=== PATIENT | male | born 1940 | race Caucasian/White ===

== ENCOUNTER 2023-08-17 10:41 | Emergency (ER) | payer OTHER, SELFPAY ==
[2023-08-17 10:55] VITALS: BP 142/67
[2023-08-17 11:21] VITALS: BMI 30.1
[2023-08-17 11:28] VITALS: BP 130/85
--- NOTE | 2023-08-17 11:28 | ED.GENMED ---
History of Present Illness
<JACKY Nguyen - Last Filed: 08/23/23 09:40>
General
Chief Complaint: Chest Pain
Source: patient
Exam Limitations: none
Time Seen by Provider: 08/17/23 11:10
Nursing documentation reviewed up to this point in time: agreed with
Travel History
Have you had any contact with someone who has COVID-19?: No
Do you have any symptoms of coronavirus? Fever > 100 degrees, chills, cough, shortness of breath, sore throat, loss of taste or smell, muscle aches, or headache?: No
History of Present Illness
History of Present Illness:
82 year old male reports chest pain since this morning. He reports taking 2 aspirin with no relief. He describes the pain as throbbing with radiation to the neck and left eye causing a headache. Patient rates the pain at a 4/10 and reports it came
on suddenly this AM. He denies previous episodes like this.
Past History
<JACKY Nguyen - Last Filed: 08/23/23 09:40>
Past History
ED Past Medical History: Asthma, COPD, GERD and Other (Kidney stones, Rectal bleeding, Vertigo, BPH, diverticulosis, hiatal hernia, pancreatitis, right foot drop)
ED Past Surgical History: Orthopedic (R knee)
Social History
Tobacco: Former smoker (quit 35 yrs ago.)
Alcohol: Occasional
Drug: None
Personal:
Living: with roommate
Employment: Employed
Family History
Family History: Other (Noncontributory)
Review of Systems
<JACKY Nguyen - Last Filed: 08/23/23 09:40>
Review of Systems
Constitutional: Reports no symptoms
EENT: Reports no symptoms
Respiratory: Reports no symptoms
Cardiac: Reports chest pain
ABD/GI: Reports no symptoms
Neurological: Reports headache
Phy Exam
<Marlin Siegel [facility] - Last Filed: 08/23/23 09:40>
General Physical Exam
General Presentation: well appearing and no apparent distress
General age: appears stated age
General Skin: warm
General Habitus: normal
General Mental: alert
General Hydration: appears well hydrated
Cardiovascular Exam
Cardiovascular Exam: regular rate/rhythm
Pulmonary Exam
Cough: no cough
Breath Sounds: Crackles: generalized
Scores
<Marlin Siegel [facility] - Last Filed: 08/23/23 09:40>
Heart Score for Chest Pain Patients
STEMI patient?: No
History: Slightly or Non-Suspicious
ECG: Normal
Age: >/= 65 years
Risk Factors: No Risk Factors
Troponin: </= Normal Limit
Heart Score for Chest Pain Patients: 2
Heart Score Risk: 2.5% MACE over next 6 weeks
Course
<Marlin Siegel [facility] - Last Filed: 08/23/23 09:40>
Orders/Labs/Results
Orders:
Orders
08/17/23 11:01
EKG [Electrocardiogram (*1)] Urgent
Reason for Study: Chest Pain
EKG- Treatment ONCE
08/17/23 11:23
CMP [Comprehensive Metabolic Panel] Urgent
Complete Blood Count/With Diff Urgent
Lipase Urgent
Troponin I Urgent
08/17/23 12:05
CT Head & Neck Angio W/wo IV Urgent
Comment:
Reason For Exam: left side headache, neck pain
08/17/23 14:18
Troponin I Urgent
Abnormal Lab Results
08/17/23
11:23
WBC 4.5 L 10^3/uL
(4.8-10.8)
MPV 10.5 H fL
(7.4-10.4)
Absolute Lymphs (auto) 1.0 L 10^3/uL
(1.2-3.4)
Monocytes % 12.7 H %
(1.7-9.3)
08/17/23 11:23
08/17/23 11:23
Vital Signs
Initial and Last Documented VS:
Initial Vital Signs
Temp Pulse Resp BP Pulse Ox
98.5 F 65 18 142/67 97
08/17/23 10:55 08/17/23 10:55 08/17/23 10:55 08/17/23 10:55 08/17/23 10:55
Last Documented Vital Signs
Temp Pulse Resp BP Pulse Ox
98.5 F 65 17 183/77 96
08/17/23 10:55 08/17/23 15:15 08/17/23 12:15 08/17/23 15:00 08/17/23 15:15
<Brandyn Bond, DO - Last Filed: 08/17/23 15:37>
Orders/Labs/Results
Orders:
Orders
08/17/23 11:01
EKG [Electrocardiogram (*1)] Urgent
Reason for Study: Chest Pain
EKG- Treatment ONCE
08/17/23 11:23
CMP [Comprehensive Metabolic Panel] Urgent
Complete Blood Count/With Diff Urgent
Lipase Urgent
Troponin I Urgent
08/17/23 12:05
CT Head & Neck Angio W/wo IV Urgent
Comment:
Reason For Exam: left side headache, neck pain
08/17/23 14:18
Troponin I Urgent
Abnormal Lab Results
08/17/23
11:23
WBC 4.5 L 10^3/uL
(4.8-10.8)
MPV 10.5 H fL
(7.4-10.4)
Absolute Lymphs (auto) 1.0 L 10^3/uL
(1.2-3.4)
Monocytes % 12.7 H %
(1.7-9.3)
08/17/23 11:23
08/17/23 11:23
Vital Signs
Initial and Last Documented VS:
Initial Vital Signs
Temp Pulse Resp BP Pulse Ox
98.5 F 65 18 142/67 97
08/17/23 10:55 08/17/23 10:55 08/17/23 10:55 08/17/23 10:55 08/17/23 10:55
Last Documented Vital Signs
Temp Pulse Resp BP Pulse Ox
98.5 F 65 17 183/77 96
08/17/23 10:55 08/17/23 15:15 08/17/23 12:15 08/17/23 15:00 08/17/23 15:15
<Brandyn Bond, DO - Last Filed: 08/17/23 15:37>
MDM/Problems Addressed
Differential Diagnosis Includes:
ACS, carotid dissection.
MDM/Problems Addressed:
82-year-old male with chest pain, headache. No signs of dissection, no signs of ACS, do not suspect PE. Patient stable for discharge, now asymptomatic.
Chronic conditions affecting care: Arrhythmia and Other (Anticoagulated state)
Acute Exacerbation and/or Progression of Chronic Illness: Arrhythmia and Other (Anticoagulated state)
<Brandyn Bond, DO - Last Filed: 08/17/23 15:37>
*Radiology
Radiology exam reviewed: radiology read reviewed (CT head and neck angiography no acute findings)
*Pulse Oximetry
Patient hypoxic: no
*EKG
Interpreted by ED Provider?: Yes
EKG Intrepretation Date: 08/17/23
EKG Intrepretation Time: 11:07
Interpretation: normal
Comparison EKG: changes noted
Heart Rate: 70
Rate: normal
Rhythm: sinus
Windber: normal axis
Interval: normal interval
QRS Pattern: normal QRS
Ischemia: no ischemia
*Test Bore Helper Interpretation
Rate: normal
Interpretation: normal
Heart Rate: 72
Rhythm: sinus
*Critical Care Note
Total Time (30-74mins, 75-104mins- exclusive of procedures): Not Applicable
Data Reviewed
Review of Other/Old Records Reveals: Operative Reports (laminectomy 12/19/22)
<Brandyn Bond DO - Last Filed: 08/17/23 15:37>
Patient Management
Social determinants of health affecting care: Living situation and Strong social support
Escalation/DeEscalation of care consider admission/obs:
admit not indicated
ED Attending Note
<JACKY Nguyen - Last Filed: 08/23/23 09:40>
-
Portions of this chart may have been created with voice recognition software.� Occasional wrong word or��sound alike� substitutions may have occurred due to the inherent limitations of voice recognition software.
<Brandyn Bond DO - Last Filed: 08/17/23 15:37>
ED Attending Note
Patient seen and examined by attending physician: Yes
I performed the substantive portion of visit, reviewed & personally made and approve the management plan that is documented in note by myself or SUHAIL.: Yes
I performed a history and physical exam of patient and discussed management with resident, I reviewed resident's note and agree with documented findings and plan of care.: Yes
ED Attending Note:
I have reviewed and agree with history and treatment plan by Marlin Siegel. My exam revealed 82-year-old male in no acute distress. He denies any symptoms at this time. Lungs clear, no bruit or murmur. Distal troponin negative. Will CTA head
neck to rule out carotid dissection, and repeat troponin.
Discharge Plan
Departure
Patient Disposition: Home (Routine Discharge)
Date of Disposition: 08/17/23
Time of Disposition: 15:12
Patient with high blood pressure during this ER visit?: Yes
Condition: Good
Discharge Problem:
Chest pain
Instructions: Chest Pain DCA Follow Up
Prescriptions:
No Action
esomeprazole magnesium [Nexium] 40 MG capsule,delayed release(DR/EC)
40 mg PO DAILY
Gammagard Liquid 20 GRAM/200 ML solution
400 ml IV MONTHLY
atorvastatin 40 MG tablet
40 mg PO DAILY
losartan 100 MG tablet
100 mg PO DAILY
albuterol sulfate 1.25 mg/3 mL solution for nebulization
1.25 mg inhalation QID PRN (Reason: shortness of breath or wheezing) Qty: 90 0RF
escitalopram oxalate 10 mg Tablet
10 mg PO DAILY Qty: 0
eszopiclone [Lunesta] 3 mg Tablet
3 mg PO HS
lorazepam 0.5 mg Tablet
0.5 mg PO PRN PRN (Reason: Flying)
ondansetron 4 mg Tablet,Disintegrating
4 mg PO Q6H PRN (Reason: Nausea-pre percocet)
Xarelto 20 mg Tablet
20 mg PO DAILY
Hold Instructions: Resume on 12/24/22.
Trelegy Ellipta 200-62.5-25 mcg Blister With Device
1 inh INHALATION DAILY
docusate sodium 100 mg Capsule
100 mg PO BID Qty: 1 0RF
sennosides [Senna Laxative] 8.6 mg Tablet
17.2 mg PO BID Qty: 2 0RF
oxycodone-acetaminophen [Percocet] 10-325 mg tablet
1 tab PO Q6H PRN (Reason: moderate-severe pain) Qty: 30 0RF
Rx Instructions:
1/2 tab moderate pain or 1 if severe
Rx Isis Rivera
tizanidine 2 mg capsule
2 mg PO TID Qty: 30 0RF
Rx Instructions:
*Rx provided by Sugey Rivera
Referrals:
Kristen Gomez MD [Family Provider] -
Interventions
Interventions:
*Risk Screen - Suicide Last Done: 08/17/23 10:55
*General Assessment Last Done: 08/17/23 15:33
*Neglect/Abuse Screening Last Done: 08/17/23 10:55
ED- Fall Risk Assessment Last Done: 08/17/23 11:35
*ED COVID-19 Vaccine History Last Done: 08/17/23 10:55
*Nursing Disposition Last Done: 08/17/23 15:33
ED- Cardiac Assessment Last Done: 08/17/23 11:35
Discharge Date and Time
Discharge Date/Time: 08/17/23 15:34
[2023-08-17 11:38] LABS: % Basophils 0.4 % (0-2); % Eosinophils 4.5 % (0-6); % Immature Granulocytes 0.4 % (0-0.5); % Lymphocytes 22.3 % (20.5-51.1); % Monocytes 12.7 % (1.7-9.3); % Neutrophils 59.7 % (42.2-75.2); Absolute Eosinophils 0.2 10^3/uL (0-0.7); Absolute Monocytes 0.6 10^3/uL (0.1-0.6); Absolute Neutrophils 2.7 10^3/uL (1.4-6.5); Hematocrit 40.2 % (39.0-52.0); Hemoglobin 13.6 g/dL (13.0-18.0); Mean Corp Hgb Conc. 33.8 g/dL (33.0-37.0); Mean Corpuscular Hgb 28.5 pg (27.0-31.0); Mean Corpuscular Volume 84.1 fL (80.0-94.0); Mean Platelet Volume 10.5 fL (7.4-10.4); Nucleated Red Blood Cells % 0 % (-); Platelet Count 234 10^3/uL (130-400); Red Blood Cell Count 4.78 10^6/uL (4.70-6.10); Red Cell Dist. Width 13.9 % (11.5-14.5); White Blood Cell Count 4.5 10^3/uL (4.8-10.8)
[2023-08-17 11:54] LABS: ALT (SGPT) 21 U/L (0-50); AST (SGOT) 22 U/L (17-59); Albumin 3.9 g/dl (3.5-5.0); Alkaline Phosphatase 83 U/L (38-126); Blood Urea Nitrogen 20 mg/dl (9-20); Calcium 8.7 mg/dl (8.4-10.2); Carbon Dioxide 27 mmol/L (22-30); Chloride 105 mmol/L (98-107); Estimated Creatinine Clearance 70 ml/min; Glucose 87 mg/dl (70-99); Lipase 128 U/L (23-300); Potassium 4.5 mmol/L (3.5-5.1); Sodium 136 mmol/L (135-145); Total Bilirubin 0.9 mg/dl (0.2-1.3); Total Protein 7.1 g/dl (6.3-8.2); eGFR > 60.00
[2023-08-17 12:00] VITALS: BP 149/80
[2023-08-17 12:04] LABS: Troponin I < 0.012 ng/ml
[2023-08-17 13:00] VITALS: BP 167/80
[2023-08-17 14:05] VITALS: BP 159/90
[2023-08-17 15:00] VITALS: BP 183/77
[2023-08-17 15:00] LABS: Troponin I < 0.012 ng/ml
== END 2023-08-17 15:34 | disposition home or self-care (01) ==
LOC: EMR 10:41
PROVIDERS: EMERGENCY PHYSICIAN Emergency Medicine; FAMILY PHYSICIAN Family Medicine
DX: R07.89 Other chest pain (principal); R03.0 Elevated blood-pressure reading, without diagnosis of hypertension
CPT/HCPCS: 99285; 70496; 70498; 80053; 83690; 84484; 85025; 93005; Q9967

== ENCOUNTER → 2023-09-12 16:35 | Outpatient (REF) | payer OTHER, SELFPAY | LOC: RAD 16:35 | PROVIDERS: ATTENDING PHYSICIAN Internal Medicine Gastroenterology; FAMILY PHYSICIAN Family Medicine | DX: K21.9 Gastro-esophageal reflux disease without esophagitis (principal) | CPT/HCPCS: 76700 ==

== ENCOUNTER 2023-09-13 06:27 | Day surgery (SDC) | payer OTHER, SELFPAY ==
[2023-09-13 09:08] VITALS: BP 171/85
[2023-09-13 09:15] VITALS: BMI 29.8
[2023-09-13 09:47] VITALS: BP 188/161
[2023-09-13 09:48] VITALS: BP 190/93
[2023-09-13 10:00] VITALS: BP 187/110
[2023-09-13 10:02] VITALS: BP 194/91
== END 2023-09-13 10:15 | disposition home or self-care (01) ==
LOC: GI 06:27
PROVIDERS: ATTENDING PHYSICIAN Internal Medicine Gastroenterology
DX: R10.13 Epigastric pain (principal); R68.81 Early satiety; K22.89 Other specified disease of esophagus; K25.9 Gastric ulcer, unspecified as acute or chronic, without hemorrhage or perforation; K44.9 Diaphragmatic hernia without obstruction or gangrene; K31.89 Other diseases of stomach and duodenum; K22.70 Barrett's esophagus without dysplasia
CPT/HCPCS: 43239; 88305; 88342

== ENCOUNTER → 2023-09-18 15:24 | Outpatient (REF) | payer OTHER, SELFPAY | LOC: RAD 15:24 | PROVIDERS: ATTENDING PHYSICIAN Internal Medicine Gastroenterology; FAMILY PHYSICIAN Family Medicine | DX: R10.9 Unspecified abdominal pain (principal) | CPT/HCPCS: 74177; Q9967 ==

== ENCOUNTER → 2024-05-06 08:01 | Outpatient (REF) | payer OTHER, SELFPAY | LOC: HWRCS 08:01 | PROVIDERS: ATTENDING PHYSICIAN Internal Medicine Cardiovascular Disease; FAMILY PHYSICIAN Family Medicine | DX: R06.02 Shortness of breath (principal) | CPT/HCPCS: 93306 ==

== ENCOUNTER → 2024-08-11 11:28 | Outpatient (REF) | payer OTHER, SELFPAY | LOC: RAD 11:28 | PROVIDERS: ATTENDING PHYSICIAN Allergy & Immunology; FAMILY PHYSICIAN Family Medicine | DX: D83.9 Common variable immunodeficiency, unspecified (principal); J45.50 Severe persistent asthma, uncomplicated; K21.9 Gastro-esophageal reflux disease without esophagitis; J45.901 Unspecified asthma with (acute) exacerbation; J47.9 Bronchiectasis, uncomplicated | CPT/HCPCS: 71046 ==

== ENCOUNTER 2024-09-19 06:11 | Day surgery (SDC) | payer OTHER, SELFPAY ==
[2024-09-19] VITALS (12 sets, daily range): BP systolic 123–155; BP diastolic 62–97; BMI 30.8
[2024-09-19] MEDS: NORMOSOL-R/PLASMALYTE-A 1000 IV (11:28)
--- NOTE | 2024-09-19 15:46 | OR.RPT ---
Operative Report
Operative Report
Anesthesia Type:
General With block
Operative Indications:
Displaced type IId distal clavicle fracture left
Operative Findings :
Same
Complications:
None
Implants:
4-hole [place] anatomic distal clavicle locking plate
Procedure and Technique:
Open reduction term fixation left distal clavicle fracture
INDICATIONS FOR PROCEDURE:
The patient is an 84-year-old active male who sustained a fall from standing. He was subsequently diagnosed with a displaced left distal clavicle fracture. He was seen in the office we discussed treatment options both surgical and nonsurgical. We
specifically discussed the relatively high nonunion rate for his type of distal clavicle fracture. Patient reports that he is quite active enjoys going to the gym and entertaining. Ultimately he elected to proceed with surgical intervention of
form of open reduction internal fixation. Specifically we discussed utilizing a distal clavicle locking plate versus hook plate. We discussed risks benefits and alternatives of surgery. We discussed the usual expected perioperative postoperative
course. After discussion written informed consent was obtained. Did have significant cardiac history and ultimately was cleared by cardiology.
OPERATIVE PROCEDURE:
Patient was seen identified the preoperative holding area. Operative extremity was marked. All questions were addressed and answered. He was taken to the operating room general anesthesia peripheral block performed. Operative extremities prepped
and draped in normal sterile fashion. Preoperative orthogonal fluoroscopy confirmed comminuted distal clavicle fracture. Timeout was performed again identifying the correct operative extremity. Preoperative antibiotics were addressed. Direct
superior approach to the distal clavicle was taken. Sharp dissection was carried through skin subcutaneous tissues deep fascial layer. Hemostasis was achieved electrocautery. Fracture was identified and fracture edges were debrided reduction was
performed and stabilized with a K wire. There was noted to be comminution inferiorly presumably with CC ligaments still attached to comminution. Balance fixation was achieved with bicortical 3.5 mm nonlocking screws medially and 2.7 mm locking
screws distally. the bone quality was noted to be somewhat poor distally however satisfactory purchase was achieved and I felt that a hook plate was unnecessary. Multiple #2 FiberWire sutures and Ethibond sutures were passed around the inferior
comminution and secured with multiple racking type images. Fluoroscopic imaging confirmed reduction of fracture with minimal superior migration of the clavicle relative to the acromion. Satisfied with the extend of surgery wound was copiously
irrigated normal saline solution. Was closed in layered fashion lysing 0 Vicryl for deep fascial layer, 2-0 Vicryl for subcutaneous layer and robert for skin. Aquacel dressing was applied. Anesthesia was reversed and patient was taken to PACU in
stable condition. Postoperative plans include nonweightbearing to the operative extremity in a sling. Plan to see patient back in 2 weeks for repeat imaging and plan removal of robert
Disposition:
PACU stable condition
[2024-09-19] MEDS: ZOFRAN 4 MG IV (16:21)
--- NOTE | 2024-09-19 19:21 | PTCARENOTE ---
called pt's to let him know the script was called in.
== END 2024-09-19 19:12 | disposition home or self-care (01) ==
LOC: SDS 06:11
PROVIDERS: ATTENDING PHYSICIAN Orthopaedic Surgery
DX: S42.032A Displaced fracture of lateral end of left clavicle, initial encounter for closed fracture (principal); W19.XXXA Unspecified fall, initial encounter
CPT/HCPCS: 23515; 73000; 76000; C1713

== ENCOUNTER 2025-02-13 18:19 | Observation (INO) | payer OTHER, SELFPAY ==
[2025-02-13] VITALS (8 sets, daily range): BP systolic 118–150; BP diastolic 46–82; BMI 32.4; BMI 32.0
[2025-02-13 13:17] LABS: Hematocrit 33.5 % (39.0-52.0); Hemoglobin 10.8 g/dL (13.0-18.0); Mean Corp Hgb Conc. 32.2 g/dL (33.0-37.0); Mean Corpuscular Volume 84.6 fL (80.0-94.0); Nucleated Red Blood Cells % 0 % (-); Platelet Count 222 10^3/uL (130-400); Red Cell Dist. Width 15.2 % (11.5-14.5)
[2025-02-13 13:52] LABS: Troponin I 4.870 ng/ml
[2025-02-13 13:57] LABS: ALT (SGPT) 14 U/L (0-50); AST (SGOT) 30 U/L (17-59); Albumin 3.7 g/dl (3.5-5.0); Alkaline Phosphatase 59 U/L (38-126); Blood Urea Nitrogen 24 mg/dl (9-20); Calcium 8.5 mg/dl (8.4-10.2); Carbon Dioxide 28 mmol/L (22-30); Chloride 109 mmol/L (98-107); Glucose 116 mg/dl (70-99); Potassium 4.2 mmol/L (3.5-5.1); Sodium 142 mmol/L (135-145); Total Protein 6.3 g/dl (6.3-8.2); eGFR > 60.00
--- NOTE | 2025-02-13 15:22 | ED.GENMED ---
History of Present Illness
<Bette Adrian DO, Resident - Last Filed: 02/14/25 06:02>
General
Chief Complaint: Breathing Problem
Source: patient
Exam Limitations: none
Time Seen by Provider: 02/13/25 14:26
Nursing documentation reviewed up to this point in time: agreed with
History of Present Illness
History of Present Illness:
Patient is an 84 year old male with a PMH of COPD, asthma, afib on xarelto and GERD, presenting with worsening SOB and productive cough s/p cardiac ablation and Watchman procedure 2 days ago at [facility]. Patient has been having worsening shortness
of breath since the procedure and said it feels like there is 'fluid in my lungs.' Patient reports that his cough is productive, with green mucus. Patient's last dose of AC (xarelto) was 2 days ago. Patient notes that he is about ~15 lbs heavier
than normal. Patient denies chest pain, heart palpitations, LE edema and all other ROS.
Past History
<Bette Adrian DO, Resident - Last Filed: 02/14/25 06:02>
Past History
ED Past Medical History: Asthma, COPD, GERD and Other (Kidney stones, Rectal bleeding, Vertigo, BPH, diverticulosis, hiatal hernia, pancreatitis, right foot drop)
ED Past Surgical History: Orthopedic (R knee)
Social History
Tobacco: Former smoker (quit 35 yrs ago.)
Alcohol: Occasional
Drug: None
Personal:
Living: with roommate
Employment: Employed
Family History
Family History: Other (Noncontributory)
Review of Systems
<Bette Adrian DO, Resident - Last Filed: 02/14/25 06:02>
Review of Systems
Allergies reviewed?: Yes
All Other Systems: ROS reviewed and negative except as documented in HPI and ROS
Constitutional: Reports weight gain
EENT: Reports no symptoms
Respiratory: Reports cough and trouble breathing
Cardiac: Reports no symptoms
ABD/GI: Reports no symptoms
: Reports no symptoms
Musculoskeletal: Reports no symptoms
Skin: Reports no symptoms
Neurological: Reports no symptoms
Endocrine: Reports no symptoms
Hematologic/Lymphatic: Reports no symptoms
Psychiatric: Reports no symptoms
Phy Exam
<Bette Adrian DO, Resident - Last Filed: 02/14/25 06:02>
General Physical Exam
General Presentation: well appearing and no apparent distress
General age: appears stated age
General Skin: warm and dry
General Habitus: obese
General Mental: alert
General Hydration: appears well hydrated
Cardiovascular Exam
Cardiovascular Exam: regular rate/rhythm
Heart Sounds: normal
Pulmonary Exam
Pulmonary Exam: decreased breath sounds and generalized wheezing
Gastrointestinal Exam
Gastrointestinal Exam: normal bowel sounds, soft and distended
Neurological Exam
Neurological Exam: alert and oriented x3
Psychiatric Exam
Psychiatric Exam: normal mood/affect
Scores
<Bette Adrian DO, Resident - Last Filed: 02/14/25 06:02>
Heart Failure Risk
Heart Failure Risk Score: Not Applicable
Course
<Bette Adrian DO, Resident - Last Filed: 02/14/25 06:02>
Orders/Labs/Results
Orders:
Orders
02/13/25
DH LUMASON 5mL Routine
02/13/25 12:36
Electrocardiogram (*1) Urgent
Reason for Study: Shortness of Breath
02/13/25 12:54
Complete Blood Count/With Diff Urgent
Comprehensive Metabolic Panel Urgent
Pro-BNP [NT-proBNP] Urgent
Troponin I Urgent
02/13/25 Dinner
Cholesterol Lowering
At Your Request: Limited Participation
Cholesterol Lowering: Sodium, 2 Gram
02/13/25 15:16
Echo 2D MMode Color/Doppler Stat
Reason for Study: elevated trop and proBNP 2 days s/p Watchman procedure
Comment: bedside
02/13/25 15:18
CR Chest - 2 Views Urgent
Comment:
Reason For Exam: SOB, productive cough
02/13/25 15:24
COVID-19 Antigen Urgent
Source: Nasal Swab
02/13/25 17:01
CefTRIAXone [Rocephin] 1,000 mg IV NOW STA
Dexamethasone Sod Phosphate [Decadron] 8 mg IV NOW STA
Ipratropium/Albuterol Sulfate [Duoneb] 3 ml INH R NOW STA
02/13/25 17:27
Admit/Transfer Patient As Directed
Co-Sign Provider:
Level of Care: Observation services
Assign to:: Telemetry
Physician / Group: Hospitalist: Flores
Diagnosis: CAP
Reason for Telemetry: Post Cardiac Ablation
Date to Stop Telemetry: 02/15/25
Time to Stop Telemetry: 11:00
PRN Pain Medication Management As Directed
May give lesser potent ordered pain med per pt: Yes
preference::
Protocol:: Medication orders for pain may be administered in a
manner that supports deferring to patient preference
when the pt is:
- Requesting an ordered lesser potent pain medication.
Least to most potent pain medications are defined
as: acetaminophen < NSAID < tramadol < opioids
(morphine, oxycodone, hydromorphone).
- Requesting a lesser dose of the same medication IF
ORDERED.
- Requesting a less intrusive route of administration
if both routes are prescribed by the provider (PO <
IV).
02/13/25 17:29
Code Status As Directed
Resuscitation Status: Do not resuscitate
Reached after discussion with pt or family/Healthcare POA: Yes
DNR Bracelet Application ONCE
02/13/25 17:43
CARDIOLOGY CONSULT Routine
Consulting Provider: Loy Winston
Was physician already notified: Yes
Reason for consult: elevated trops, recent cardiac procedure
02/13/25 17:48
Calcium 200mg(Ca. Carb. 500mg) [Tums Chewable Tablet] 200 mg PO Q6HPRN PRN
02/13/25 19:23
Troponin I Routine
Blood Culture Q30M
ARACELI Source: Blood/Venous
Specimen Description:
02/13/25 19:40
Blood Culture Q30M
ARACELI Source: Blood/Venous
Specimen Description:
02/13/25 19:42
Legionella Urinary Antigen Routine
ARACELI Source: Urine
Specimen Description:
Strep pneumoniae Antigen Routine
ARACELI Source: Urine
Specimen Description:
02/13/25 19:49
Sputum Culture [Respiratory Culture/Gram Stain] Routine
ARACELI Source: Sputum
Specimen Description:
Date Specimen was Collected: 02/13/25
Time Specimen was Collected: 19:48
02/13/25 20:24
Acetaminophen [Tylenol] 1,000 mg PO Q6HPRN PRN mild pain
Albuterol Nebs [Ventolin Nebules] 1.25 mg INH R QIDPRN PRN shortness of breath or wheezing
Atorvastatin [Lipitor] 40 mg PO QPM
Docusate W/Senna [Senokot-S] 1 tablet PO BIDPRN PRN
Pantoprazole [Protonix] 40 mg PO BID
Polyethylene Glycol Powder [Miralax] 17 grams PO DAILYPRN PRN
Rivaroxaban [Xarelto] 20 mg PO QPM
02/13/25 20:24
Activity As Directed
Activity Level: As Tolerated
Vital Signs As Directed
Frequency: Per unit guidelines
02/14/25 06:00
EKG [Electrocardiogram (*1)] IN AM
Reason for Study: Shortness of Breath
Basic Metabolic Panel IN AM
Complete Blood Count/With Diff IN AM
Troponin I IN AM
02/14/25 08:00
Doxycycline [Vibramycin] 100 mg PO Q12
Escitalopram Oxalate [Lexapro] 10 mg PO DAILY
Losartan [Cozaar] 100 mg PO DAILY
Prednisone [Deltasone] 40 mg PO DAILY
02/14/25 18:00
CefTRIAXone [Rocephin] 1,000 mg IV Q24H
02/15/25 11:00
DC Protocol for Telemetry ONCE
Abnormal Lab Results
02/13/25
12:54
RBC 3.96 L 10^6/uL
(4.70-6.10)
Hgb 10.8 L g/dL
(13.0-18.0)
Hct 33.5 L %
(39.0-52.0)
MCHC 32.2 L g/dL
(33.0-37.0)
RDW 15.2 H %
(11.5-14.5)
MPV 11.2 H fL
(7.4-10.4)
Absolute Monos (auto) 0.8 H 10^3/uL
(0.1-0.6)
Lymphocytes % 19.0 L %
(20.5-51.1)
Monocytes % 10.0 H %
(1.7-9.3)
Chloride 109 H mmol/L
(98-107)
BUN 24 H mg/dl
(9-20)
Glucose 116 H mg/dl
(70-99)
Troponin I 4.870 H* ng/ml
02/13/25 12:54
02/13/25 12:54
Vital Signs
Initial and Last Documented VS:
Initial Vital Signs
Temp Pulse Resp BP Pulse Ox
98.6 F 77 20 133/59 95
02/13/25 12:38 02/13/25 12:38 02/13/25 12:38 02/13/25 12:38 02/13/25 12:38
Last Documented Vital Signs
Temp Pulse Resp BP Pulse Ox
98.8 F 76 18 121/68 98
02/14/25 03:01 02/14/25 03:01 02/14/25 03:01 02/14/25 03:01 02/14/25 03:01
<Jean-Paul Bell MD - Last Filed: 02/13/25 17:05>
Orders/Labs/Results
Orders:
Orders
02/13/25
DH LUMASON 5mL Routine
02/13/25 12:36
Electrocardiogram (*1) Urgent
Reason for Study: Shortness of Breath
02/13/25 12:54
Complete Blood Count/With Diff Urgent
Comprehensive Metabolic Panel Urgent
Pro-BNP [NT-proBNP] Urgent
Troponin I Urgent
02/13/25 Dinner
Cholesterol Lowering
At Your Request: Limited Participation
Cholesterol Lowering: Sodium, 2 Gram
02/13/25 15:16
Echo 2D MMode Color/Doppler Stat
Reason for Study: elevated trop and proBNP 2 days s/p Watchman procedure
Comment: bedside
02/13/25 15:18
CR Chest - 2 Views Urgent
Comment:
Reason For Exam: SOB, productive cough
02/13/25 15:24
COVID-19 Antigen Urgent
Source: Nasal Swab
02/13/25 17:01
CefTRIAXone [Rocephin] 1,000 mg IV NOW STA
Dexamethasone Sod Phosphate [Decadron] 8 mg IV NOW STA
Ipratropium/Albuterol Sulfate [Duoneb] 3 ml INH R NOW STA
02/13/25 17:27
Admit/Transfer Patient As Directed
Co-Sign Provider:
Level of Care: Observation services
Assign to:: Telemetry
Physician / Group: Hospitalist: Flores
Diagnosis: CAP
Reason for Telemetry: Post Cardiac Ablation
Date to Stop Telemetry: 02/15/25
Time to Stop Telemetry: 11:00
PRN Pain Medication Management As Directed
May give lesser potent ordered pain med per pt: Yes
preference::
Protocol:: Medication orders for pain may be administered in a
manner that supports deferring to patient preference
when the pt is:
- Requesting an ordered lesser potent pain medication.
Least to most potent pain medications are defined
as: acetaminophen < NSAID < tramadol < opioids
(morphine, oxycodone, hydromorphone).
- Requesting a lesser dose of the same medication IF
ORDERED.
- Requesting a less intrusive route of administration
if both routes are prescribed by the provider (PO <
IV).
02/13/25 17:29
Code Status As Directed
Resuscitation Status: Do not resuscitate
Reached after discussion with pt or family/Healthcare POA: Yes
DNR Bracelet Application ONCE
02/13/25 17:43
CARDIOLOGY CONSULT Routine
Consulting Provider: Loy Winston
Was physician already notified: Yes
Reason for consult: elevated trops, recent cardiac procedure
02/13/25 17:48
Calcium 200mg(Ca. Carb. 500mg) [Tums Chewable Tablet] 200 mg PO Q6HPRN PRN
02/13/25 19:23
Troponin I Routine
Blood Culture Q30M
ARACELI Source: Blood/Venous
Specimen Description:
02/13/25 19:40
Blood Culture Q30M
ARACELI Source: Blood/Venous
Specimen Description:
02/13/25 19:42
Legionella Urinary Antigen Routine
ARACELI Source: Urine
Specimen Description:
Strep pneumoniae Antigen Routine
ARACELI Source: Urine
Specimen Description:
02/13/25 19:49
Sputum Culture [Respiratory Culture/Gram Stain] Routine
ARACELI Source: Sputum
Specimen Description:
Date Specimen was Collected: 02/13/25
Time Specimen was Collected: 19:48
02/13/25 20:24
Acetaminophen [Tylenol] 1,000 mg PO Q6HPRN PRN mild pain
Albuterol Nebs [Ventolin Nebules] 1.25 mg INH R QIDPRN PRN shortness of breath or wheezing
Atorvastatin [Lipitor] 40 mg PO QPM
Docusate W/Senna [Senokot-S] 1 tablet PO BIDPRN PRN
Pantoprazole [Protonix] 40 mg PO BID
Polyethylene Glycol Powder [Miralax] 17 grams PO DAILYPRN PRN
Rivaroxaban [Xarelto] 20 mg PO QPM
02/13/25 20:24
Activity As Directed
Activity Level: As Tolerated
Vital Signs As Directed
Frequency: Per unit guidelines
02/14/25 06:00
EKG [Electrocardiogram (*1)] IN AM
Reason for Study: Shortness of Breath
Basic Metabolic Panel IN AM
Complete Blood Count/With Diff IN AM
Troponin I IN AM
02/14/25 08:00
Doxycycline [Vibramycin] 100 mg PO Q12
Escitalopram Oxalate [Lexapro] 10 mg PO DAILY
Losartan [Cozaar] 100 mg PO DAILY
Prednisone [Deltasone] 40 mg PO DAILY
02/14/25 18:00
CefTRIAXone [Rocephin] 1,000 mg IV Q24H
02/15/25 11:00
DC Protocol for Telemetry ONCE
Abnormal Lab Results
02/13/25
12:54
RBC 3.96 L 10^6/uL
(4.70-6.10)
Hgb 10.8 L g/dL
(13.0-18.0)
Hct 33.5 L %
(39.0-52.0)
MCHC 32.2 L g/dL
(33.0-37.0)
RDW 15.2 H %
(11.5-14.5)
MPV 11.2 H fL
(7.4-10.4)
Absolute Monos (auto) 0.8 H 10^3/uL
(0.1-0.6)
Lymphocytes % 19.0 L %
(20.5-51.1)
Monocytes % 10.0 H %
(1.7-9.3)
Chloride 109 H mmol/L
(98-107)
BUN 24 H mg/dl
(9-20)
Glucose 116 H mg/dl
(70-99)
Troponin I 4.870 H* ng/ml
02/13/25 12:54
02/13/25 12:54
Vital Signs
Initial and Last Documented VS:
Initial Vital Signs
Temp Pulse Resp BP Pulse Ox
98.6 F 77 20 133/59 95
02/13/25 12:38 02/13/25 12:38 02/13/25 12:38 02/13/25 12:38 02/13/25 12:38
Last Documented Vital Signs
Temp Pulse Resp BP Pulse Ox
98.8 F 76 18 121/68 98
02/14/25 03:01 02/14/25 03:01 02/14/25 03:01 02/14/25 03:01 02/14/25 03:01
<Bette Adrian DO, Resident - Last Filed: 02/14/25 06:02>
MDM/Problems Addressed
Differential Diagnosis Includes:
acute heart failure, pneumonia, viral infection
MDM/Problems Addressed:
Ordered echo w/ Doppler and chest X-Ray 2 views to assess the patient's worsening SOB and cough.
<Bette Adrian DO, Resident - Last Filed: 02/14/25 06:02>
*Pulse Oximetry
SaO2: 95
Oxygen Mode of Delivery: Room air
Patient hypoxic: no
*Critical Care Note
Total Time (30-74mins, 75-104mins- exclusive of procedures): Not Applicable
ED Attending Note
<Bette Adrian DO, Resident - Last Filed: 02/14/25 06:02>
-
Portions of this chart may have been created with voice recognition software.� Occasional wrong word or��sound alike� substitutions may have occurred due to the inherent limitations of voice recognition software.
<Jean-Paul Bell MD - Last Filed: 02/13/25 17:05>
ED Attending Note
Patient seen and examined by attending physician: Yes
I performed a history and physical exam of patient and discussed management with resident, I reviewed resident's note and agree with documented findings and plan of care.: Yes
ED Attending Note:
84-year-old male increase shortness of breath since returning home from a Watchman procedure/ablation 3 days ago. Some cough some sputum. No pleuritic pain.
On exam patient is nontoxic. Minimally tachypneic at rest. Heart regular rate and rhythm. Diffuse mild expiratory wheezing and rhonchi. No rales in the bases. Abdomen is nontender. Grossly nonfocal. Warm and dry. No significant edema.
Troponin positive. Likely from procedure. EKG is stable. Chest x-ray as a possible left perihilar pneumonia. Cleared by cardiology although they agree troponin should be trended. Will cover with antibiotics steroids albuterol treatments.
Discharge Plan
Departure
Patient Disposition: Admit
Date of Disposition: 02/13/25
Time of Disposition: 17:03
Presentation/result/management discussed w/ accepting MD/DO: cards
Discharge Problem:
Respiratory distress/pneumonia, Recent watchman/ablation, Elevated troponin likely secondary to pr
Interventions
Interventions:
*Risk Screen - Suicide Last Done: 02/13/25 12:38
*General Assessment Last Done: 02/13/25 12:38
*Neglect/Abuse Screening Last Done: 02/13/25 12:38
*ED COVID-19 Vaccine History Last Done: 02/13/25 12:38
*Nursing Disposition Last Done: 02/13/25 20:22
ED- Cardiac Assessment Last Done: 02/13/25 15:15
ED- Pulmonary Assessment Last Done: 02/13/25 15:15
Discharge Date and Time
Discharge Date/Time: 02/13/25 20:23
[2025-02-13 15:47] LABS: COVID-19 Antigen Negative (Negative)
--- NOTE | 2025-02-13 16:12 | CON.CAR ---
Addendum entered and electronically signed by Ced Lynne DO 02/13/25 17:32:
I saw and examined the patient.
The Surgical Endoscopist's note was reviewed and I agree with the note.
Comment:
Patient with a history of atrial fibrillation, hypertension, hyperlipidemia, MR, asthma COPD, GERD, obesity. Patient underwent PVI, CTI ablation, and watchman on 02/11/2025 at [facility]. Ablation was performed with fair pulsed pulse field
ablation. Patient presented with worsening shortness of breath, cough, congestion over the past 2 days. Patient stated that this is a productive green cough. Patient noted that this is similar to the symptoms he experienced the beginning of January
2024 for which he was prescribed steroids by his rotary furnace tender.
GENERAL: no acute distress
EYE: sclera anicteric
NECK: Supple, no JVD, no carotid bruit appreciated
ENT: normal nose, moist mucosal membranes
CARDIAC: Regular rate and rhythm, +S1/S2, no murmur, rubs, or gallops
CHEST/PULMONARY: Normal effort, diffuse rhonchi, expiratory wheezing
ABDOMEN: Soft, without focal tenderness or distention
NEUROLOGICAL: Alert and oriented x3
SKIN: Warm and dry, no rash
PSYCH: Normal and appropriate interaction.
Telemetry shows sinus rhythm
EKG sinus rhythm inferior infarct pattern but no significant change from prior ECG
A/P as below
Patient presenting with worsening shortness of breath and productive cough similar to prior experiences. Patient not experiencing heart failure symptoms reporting no PND, orthopnea, edema. No evidence of volume overload on exam. BNP 545. Of
note, troponin is 4.87 which is likely elevated in the setting of recent extensive cardiac ablation and patient not experiencing chest pain or chest pain like symptoms.
Trend troponin to peak
Check echocardiogram
Resume anticoagulation
Monitor on telemetry
At this current juncture, no evidence of heart failure on examination, would avoid diuresis and monitor clinical symptoms. Would encourage further evaluation from pulmonary/primary standpoint regarding etiology of shortness of breath
Discussed with nursing, emergency physician
Original Note:
Consultation
Consultation Request
Date/Time Consultation Requested: 02/13/2025
Date/Time Consultation Performed: 02/13/2025
Requesting Provider: Dr. Bell
Performing Provider: Lissette Rose PA-C for Dr. Lynne
Reason for Consultation: SOB s/p recent PVI
Medical History
-
History of Present Illness:
HPI: Shawn is an 84 year old male with PMH of paroxysmal atrial fibrillation w/ recent PFA and watchman implant, HTN, HLD, MR, asthma/COPD, and GERD. He presents for evaluation of worsening SOB over the past few days following recent PVI and
watchman implant at [place] on 02/11. Notes shortness of breath and chest tightness mostly with exertion as well as a productive cough. He has had no fever or chills. No orthopnea, PND, chest pain, or edema. He had similar symptoms earlier in
01/2025 and was placed on steroids by his rotary furnace tender and improved. Notes symptoms currently feel very similar to prior episode, but have worsened. Denies any palpitations, remains in SR by ECG and by review of telemetry. He has been off of
anticoagulation since procedure and reports he was instructed to resume tonight. In ER, troponin noted to be elevated at 4.87 with proBNP of 545. Urgent echo completed and cardiology called to evaluate patient. He still feels tight in his chest and
is coughing during exam. Covid testing negative.
PMH:
Paroxysmal atrial fibrillation
s/p PFA, CTI ablation 02/11/2025
s/p watchman implant 02/11/2025
Chronic Xarelto anticoagulation
h/o Linq implant in 2021, battery since
HTN
Asthma
COPD
HLD
Carotid Bruit
mild MR by echo 01/2021
GERD
Past Medical History
Past Medical History: Other (In HPI)
Past Surgical History: Cardiac (Linq implant 2021, s/p PVI, watchman implant 02/11/2025) and Orthopedic
Social History
Tobacco: Former Smoker
Alcohol: Occasional
Drug: None
Personal:
Living: With Family
Family History
Family History: Asthma, CAD and Diabetes
Allergies / Home Medications
Allergy/AdvReac Type Severity Reaction Status Date / Time
codeine Allergy NAUSEA AND Verified 02/13/25 12:42
SPACY
FEELING,DIZZY
levofloxacin (From Levaquin) Allergy neuropathy Verified 02/13/25 12:42
and foot
drop-pt
refuses to
take
levaquin
oxycodone Allergy Nausea / Verified 02/13/25 12:42
Vomiting
�Medication �Instructions �Recorded �Confirmed �Type
immune glob,gamma (IgG) 10 400 ml IV MONTHLY 01/10/21 02/13/25 History
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
solution (Gammagard Liquid)
atorvastatin 40 mg tablet 40 mg PO QPM High cholesterol 04/21/21 02/13/25 History
losartan 100 mg tablet 100 mg PO DAILY Blood pressure 04/21/21 02/13/25 History
escitalopram oxalate 10 mg tablet 10 mg PO DAILY Depression ##0 05/14/22 02/13/25 History
eszopiclone 3 mg tablet (Lunesta) 3 mg PO HS Sleep 05/14/22 02/13/25 History
fluticasone fur. 200 mcg-umeclid 1 inh inhalation R DAILY 12/12/22 02/13/25 History
62.5 mcg-vilant 25 mcg
inhalat.powder (Trelegy Ellipta)
rivaroxaban 20 mg tablet (Xarelto) 20 mg PO QPM 12/12/22 02/13/25 History
acetaminophen 500 mg tablet 1,000 mg PO Q6HPRN PRN mild pain 02/13/25 02/13/25 History
(Tylenol Extra Strength)
albuterol sulfate 1.25 mg/3 mL 1.25 mg inhalation R QIDPRN PRN 02/13/25 02/13/25 History
solution for nebulization shortness of breath or wheezing
pantoprazole 40 mg tablet,delayed 40 mg PO BID 02/13/25 02/13/25 History
release (Protonix)
Review of Systems
-
History Source: Patient
All other systems: Negative unless noted
Physical Exam
Vital Signs
Temp Pulse Resp BP Pulse Ox
98.6 F 77 20 133/59 95
02/13/25 12:38 02/13/25 12:38 02/13/25 12:38 02/13/25 12:38 02/13/25 15:22
Lab Results
02/13/25 12:54
02/13/25 12:54
Troponin I 4.870 ng/ml H* 02/13/25 12:54
[id number] Pept 545 pg/ml 02/13/25 12:54
Physical Exam
General: Well Developed, Well Nourished and No Apparent Distress
HEENT: Normocephalic, Anicteric and Moist Mucous Membranes
Respiratory: Wheezes and Rhonchi
Cardiac: Regular Rhythm
Musculoskeletal: No Clubbing, No Cyanosis and No Edema
Skin: Warm and Dry
Neuro: AO x 3 and Nonfocal/Grossly Intact
Psych: Calm
Impression / Plan
-
PCP:Dr. Gomez
Facilities Officer: Dr. Aguiar
Impression:
Presented with worsening SOB, productive cough
Elevated troponin
Paroxysmal atrial fibrillation
s/p PFA, CTI ablation 02/11/2025
s/p watchman implant 02/11/2025
Chronic Xarelto anticoagulation
h/o Linq implant in 2021, battery since
HTN
Asthma
COPD
HLD
Carotid Bruit
mild MR by echo 01/2021
GERD
Echo 05/06/2024: EF 50-55%, mod cLVH, no significant valvular disease
Post-op EDUARDO 02/11/2025: EF 55-70%, no WMA, s/p 27 mm watchman FLX pro with no significant gap or leak in final position, no pericardial effusion.
Echo 02/13/2025: Study completed, official report pending.
Plan:
-Presented with worsening SOB over the past few days. Had similar symptoms back in January which was improved following course of steroids.
-Afebrile, covid testing negative. Productive cough. WBC within normal limits.
-Troponin elevation noted with initial troponin 4.87. Suspect elevation related to recent PVI and CTI ablation 02/11, would trend. No chest pain noted.
-Prior recent PET/CT stress test 06/2024 without evidence of ischemia.
-In SR by ECG and on review of telemetry. HR stable. Restart Xarelto 20 mg daily tonight.
-Urgent echo completed in ER, no WMA and no pericardial effusion noted on prelim.
-Suspect symptoms more pulm in nature.
-BP stable. Continue usual medications.
-Does not appear volume overloaded at this time, but could consider gentle diuresis.
HPI: Shawn is an 84 year old male with PMH of paroxysmal atrial fibrillation w/ recent PFA and watchman implant, HTN, HLD, MR, asthma/COPD, and GERD. He presents for evaluation of worsening SOB over the past few days following recent PVI and
watchman implant at [facility] [place] on 02/11. Notes shortness of breath and chest tightness mostly with exertion as well as a productive cough. He has had no fever or chills. No orthopnea, PND, chest pain, or edema. He had similar symptoms earlier in
01/2025 and was placed on steroids by his rotary furnace tender and improved. Notes symptoms currently feel very similar to prior episode, but have worsened. Denies any palpitations, remains in SR by ECG and by review of telemetry. He has been off of
anticoagulation since procedure and reports he was instructed to resume tonight. In ER, troponin noted to be elevated at 4.87 with proBNP of 545. Urgent echo completed and cardiology called to evaluate patient. He still feels tight in his chest and
is coughing during exam. Covid testing negative.
Data Reviewed
-
EKG: Tracing Personally Visualized and interpreted
Radiology: Report Reviewed by me
Labs: Labs Reviewed by me
Old Records: Reviewed
[2025-02-13] MEDS: DUONEB 3 ML INH (17:07)
[2025-02-13] MEDS: DECADRON 8 MG IV (17:07)
[2025-02-13] MEDS: ROCEPHIN 1000 MG IV (17:07)
--- NOTE | 2025-02-13 17:48 | HPS.HSE ---
Family Physician
-
Family Physician: Kristen Gomez MD
Chief Complaint
-
Cough, shortness of breath
History of Present Illness
Mr. Shah is a 84-year-old male with a medical history of asthma/COPD, hypertension, PUD, A-fib (previously on Xarelto, recent ablation and Watchman device at [facility] 02/11), and neuropathy who presented with cough and shortness of breath. His
symptoms began 2 days prior to arrival (1 day after ablation and Watchman device). He denies chest pain, abdominal pain, nausea, or change in bowel or bladder habits.
In the ED, he was found to be normotensive, afebrile, and saturating appropriately on room air. His EKG showed normal sinus rhythm with a controlled rate around 70. His labs were notable for a mild normocytic anemia with a hemoglobin of 10.8
(appears consistent with his baseline), normal renal function with a creatinine of 1.1, and a troponin of 4.8. Chest x-ray showed possible left perihilar infiltrate (official read pending). He was evaluated by cardiology who felt his troponin
elevation was most likely due to recent cardiac procedure. Bedside echocardiogram showed no wall motion abnormalities and LVEF was preserved. He was given breathing treatments, started on antibiotics for suspected pneumonia, and admitted for
further evaluation and management.
Medical History
Past Medical History
Past Medical History: Reports Other
Additional Past Medical History:
asthma/COPD, hypertension, PUD, A-fib (previously on Xarelto, recent ablation and Watchman device at [facility] 02/11)
Past Surgical History: Reports Other
Additional Past Surgical History:
Watchman device and cardiac ablation ([facility], 02/11/2025), spinal surgery including L3-L5 with fusion (01/2023)
Social History
Tobacco: Former Smoker
Alcohol: Occasional
Drug: None
Personal:
Living: With Family
Family History
Family History: Asthma, CAD and Diabetes
Allergies / Home Medications
Allergies reflects when Allergies were last updated in [facility] [facility].
Home Medications with original date entered in [facility] [facility]
Allergy/Medication List:
Allergies
Allergy/AdvReac Type Severity Reaction Status Date / Time
codeine Allergy NAUSEA AND Verified 02/13/25 12:42
SPACY
FEELING,DIZZY
levofloxacin (From Levaquin) Allergy neuropathy Verified 02/13/25 12:42
and foot
drop-pt
refuses to
take
levaquin
oxycodone Allergy Nausea / Verified 02/13/25 12:42
Vomiting
Home Medications
immune glob,gamma (IgG) 10 %-gly-IgA over 50 mcg/mL injection solution (Gammagard Liquid) 400 ml IV MONTHLY hypogammaglobulinemia 01/10/21
atorvastatin 40 mg tablet 40 mg PO QPM High cholesterol 04/21/21
losartan 100 mg tablet 100 mg PO DAILY Blood pressure 04/21/21
escitalopram oxalate 10 mg tablet 10 mg PO DAILY Depression ##0 05/14/22
eszopiclone 3 mg tablet (Lunesta) 3 mg PO HS Sleep 05/14/22
fluticasone fur. 200 mcg-umeclid 62.5 mcg-vilant 25 mcg inhalat.powder (Trelegy Ellipta) 1 inh inhalation R DAILY 12/12/22
rivaroxaban 20 mg tablet (Xarelto) 20 mg PO QPM 12/12/22
acetaminophen 500 mg tablet (Tylenol Extra Strength) 1,000 mg PO Q6HPRN PRN mild pain 02/13/25
albuterol sulfate 1.25 mg/3 mL solution for nebulization 1.25 mg inhalation R QIDPRN PRN shortness of breath or wheezing 02/13/25
pantoprazole 40 mg tablet,delayed release (Protonix) 40 mg PO BID 02/13/25
Review of Systems
-
Respiratory: Reports Cough and Trouble Breathing
Physical Exam
Vital Signs
Vital Signs
Temp Pulse Resp BP Pulse Ox
97.5 F 77 20 133/59 95
02/13/25 16:00 02/13/25 12:38 02/13/25 12:38 02/13/25 12:38 02/13/25 15:22
Physical Exam
General: No Apparent Distress
Laboratory Results
-
02/13/25 12:54
02/13/25 12:54
Laboratory Results
Total Bilirubin 0.6 mg/dl (0.2-1.3) 02/13/25 12:54
AST 30 U/L (17-59) 02/13/25 12:54
ALT 14 U/L (0-50) 02/13/25 12:54
Alkaline Phosphatase 59 U/L (38-126) 02/13/25 12:54
Troponin I 4.870 ng/ml H* 02/13/25 12:54
Impression/Plan
-
General: No Apparent Distress, Comfortable and Conversant
HEENT: NormoCephalic, Moist mucous membranes, Atraumatic
Respiratory: No wheezing (after administration of breathing treatments and steroids), Non Labored Respirations, productive cough
Cardiac: S1/S2 and Regular Rhythm; No Rub or Gallop
GI: Soft, Non Tender, Non Distended and Normal Bowel Sounds
Musculoskeletal: No Edema, no deformity
Skin: Warm and dry
: NO Strong
Neuro: Awake, Alert, Nonfocal/grossly intact
Psych: Calm and Intact Judgment/Insight
Mr. Shah is a 84-year-old male with a medical history of asthma/COPD, hypertension, PUD, A-fib (previously on Xarelto, recent ablation and Watchman device at [facility] 02/11), and neuropathy who presented with cough and shortness of breath. His
symptoms began 2 days prior to arrival (1 day after ablation and Watchman device). He denies chest pain, abdominal pain, nausea, or change in bowel or bladder habits.
In the ED, he was found to be normotensive, afebrile, and saturating appropriately on room air. His EKG showed normal sinus rhythm with a controlled rate around 70. His labs were notable for a mild normocytic anemia with a hemoglobin of 10.8
(appears consistent with his baseline), normal renal function with a creatinine of 1.1, and a troponin of 4.8. Chest x-ray showed possible left perihilar infiltrate (official read pending). He was evaluated by cardiology who felt his troponin
elevation was most likely due to recent cardiac procedure. Bedside echocardiogram showed no wall motion abnormalities and LVEF was preserved. He was given breathing treatments, started on antibiotics for suspected pneumonia, and admitted for
further evaluation and management.
Community-acquired pneumonia:
- Continue antibiotics with ceftriaxone and doxycycline
- Follow-up blood and sputum cultures
- Check strep pneumo and Legionella urinary antigens
- Breathing treatments as needed
- Would likely benefit from short course of steroids, received a dose of IV dexamethasone in the ED, will start tomorrow with prednisone 40 mg daily
Elevated troponin:
- Troponins were significantly elevated in the ED 4.8, however likely due to recent cardiac ablation and watchman device placement on 02/11 at [facility]
- Will trend troponins through peak
- Echocardiogram shows preserved systolic function with no wall motion abnormalities
- Nonacute EKG, will repeat EKG in the morning
- Cardiology following, appreciate guidance, recommend continuing anticoagulation with Xarelto for now
- Continue home statin
Asthma/COPD:
- Was reportedly wheezing initially on exam, resolved with breathing treatments and steroids
- Will continue as needed breathing treatments
- Continue steroids with prednisone 40 mg daily
- Not requiring supplemental oxygen at this time
Hypertension:
- Chronic, stable
- Continue home losartan 100 mg daily
A-fib:
- Status post recent ablation and Watchman device placement at [facility] on 02/11
- Had stopped Xarelto after Watchman device placement, however cardiology currently recommending continuing Xarelto for now which will be restarted tonight 02/13
- Currently rate controlled
Peptic ulcer disease:
- Continue home dose of Protonix 40 mg p.o. twice daily
- Added Tums as needed
DVT prophylaxis: Xarelto
CODE STATUS: DNR, confirmed with patient at bedside
Total time spent on today's encounter was 60 minutes
[2025-02-13] MEDS: VIBRAMYCIN 260 MG IV (19:48)
[2025-02-13 20:09] LABS: Troponin I 3.690 ng/ml
--- NOTE | 2025-02-13 20:30 | PTCARENOTE ---
Pt. admitted thru E.D., AAO x 3, vs stable, NSR with first degree AVB, PAC's, call valladares within reach.
[2025-02-13] MEDS: XARELTO 20 MG PO (21:31)
[2025-02-13] MEDS: LIPITOR 40 MG PO (21:31)
[2025-02-13] MEDS: PROTONIX 40 MG PO (21:31)
[2025-02-13] MEDS: AMBIEN 5 MG PO (23:39)
[2025-02-14 03:01] VITALS: BP 121/68
[2025-02-14 06:50] LABS: Hematocrit 32.7 % (39.0-52.0); Hemoglobin 10.5 g/dL (13.0-18.0); Mean Corp Hgb Conc. 32.1 g/dL (33.0-37.0); Mean Corpuscular Volume 83.4 fL (80.0-94.0); Nucleated Red Blood Cells % 0 % (-); Platelet Count 219 10^3/uL (130-400); Red Cell Dist. Width 14.6 % (11.5-14.5)
[2025-02-14 06:53] LABS: Blood Urea Nitrogen 21 mg/dl (9-20); Calcium 9.0 mg/dl (8.4-10.2); Carbon Dioxide 28 mmol/L (22-30); Chloride 109 mmol/L (98-107); Estimated Creatinine Clearance 85 ml/min; Glucose 129 mg/dl (70-99); Potassium 5.0 mmol/L (3.5-5.1); Sodium 140 mmol/L (135-145); eGFR > 60.00
[2025-02-14 07:07] LABS: Troponin I 1.710 ng/ml
[2025-02-14 07:33] VITALS: BP 128/83
[2025-02-14] MEDS: SPIRIVA RESPIMAT 2.5 MCG INH (07:46)
[2025-02-14] MEDS: SYMBICORT 160/4.5 MCG INHALER INH (07:46)
[2025-02-14] MEDS: VIBRAMYCIN 100 MG PO (08:15)
[2025-02-14] MEDS: COZAAR 100 MG PO (08:16)
[2025-02-14] MEDS: PROTONIX 40 MG PO (08:16)
[2025-02-14] MEDS: DELTASONE 40 MG PO (08:16)
[2025-02-14] MEDS: LEXAPRO 10 MG PO (08:16)
[2025-02-14] MEDS: SYMBICORT 160/4.5 MCG INHALER 2 PUFF INH (09:56)
[2025-02-14] MEDS: SPIRIVA RESPIMAT 2.5 MCG 2 PUFF INH (09:56)
[2025-02-14] MEDS: VENTOLIN NEBULES 1.25 MG INH (10:01)
[2025-02-14 11:17] VITALS: BP 131/76
--- NOTE | 2025-02-14 12:35 | W.DCSUMMARY ---
Discharge Summary
Discharge Data
Date of Admission: 02/13/25
Date of Discharge: 02/14/25
Total time spent discharging patient (in min): 45
-
Pending Results: No
Hospital Course
Mr. Shah is a 84-year-old male with a medical history of asthma/COPD, hypertension, PUD, A-fib (previously on Xarelto, recent ablation and Watchman device at [facility] 02/11), and neuropathy who presented with cough and shortness of breath. His
symptoms began 2 days prior to arrival (1 day after ablation and Watchman device). He denies chest pain, abdominal pain, nausea, or change in bowel or bladder habits.
In the ED, he was found to be normotensive, afebrile, and saturating appropriately on room air. His EKG showed normal sinus rhythm with a controlled rate around 70. His labs were notable for a mild normocytic anemia with a hemoglobin of 10.8
(appears consistent with his baseline), normal renal function with a creatinine of 1.1, and a troponin of 4.8. Chest x-ray showed possible left perihilar infiltrate (official read pending). He was evaluated by cardiology who felt his troponin
elevation was most likely due to recent cardiac procedure. Bedside echocardiogram showed no wall motion abnormalities and LVEF was preserved. He was given breathing treatments, started on antibiotics for suspected pneumonia, and admitted for
further evaluation and management.
His respiratory status significantly improved with steroids and breathing treatments. He did not require supplemental oxygen. His strep pneumoniae and Legionella urinary antigens were negative. He continues to have mild to moderate diffuse
wheezing prior to his morning breathing treatments with improvement after his treatments. He will be continued on a long oral steroid taper and transitioned to oral antibiotics to complete a 7-day course. His troponins down trended down
significantly and he remained chest pain-free. His Xarelto was restarted by cardiology during this admission and will be continued for now after discharge. He will need to follow-up with his primary air hose coupler regarding necessity of
anticoagulation going forward. He remained hemodynamically stable. He will be discharged to home. He should continue close follow-up with his park activities coordinator, with his air hose coupler, and with his primary care physician.
General: No Apparent Distress, Comfortable and Conversant
HEENT: NormoCephalic, Moist mucous membranes, Atraumatic
Respiratory: Mild wheezing, Non Labored Respirations, productive cough
Cardiac: S1/S2 and Regular Rhythm; No Rub or Gallop
GI: Soft, Non Tender, Non Distended and Normal Bowel Sounds
Musculoskeletal: No Edema, no deformity
Skin: Warm and dry
: NO Strong
Neuro: Awake, Alert, Nonfocal/grossly intact
Psych: Calm and Intact Judgment/Insight
Discharge Plan
-
Patient Disposition: Home (Routine Discharge)
Discharge Diagnosis/Procedures: Community-acquired pneumonia, COPD with acute exacerbation, elevated troponin
Activity: As tolerated
Activity Restrictions/Additional Instructions:
Mr. Shah is a 84-year-old male with a medical history of asthma/COPD, hypertension, PUD, A-fib (previously on Xarelto, recent ablation and Watchman device at [facility] 02/11), and neuropathy who presented with cough and shortness of breath. His
symptoms began 2 days prior to arrival (1 day after ablation and Watchman device). He denies chest pain, abdominal pain, nausea, or change in bowel or bladder habits.
In the ED, he was found to be normotensive, afebrile, and saturating appropriately on room air. His EKG showed normal sinus rhythm with a controlled rate around 70. His labs were notable for a mild normocytic anemia with a hemoglobin of 10.8
(appears consistent with his baseline), normal renal function with a creatinine of 1.1, and a troponin of 4.8. Chest x-ray showed possible left perihilar infiltrate (official read pending). He was evaluated by cardiology who felt his troponin
elevation was most likely due to recent cardiac procedure. Bedside echocardiogram showed no wall motion abnormalities and LVEF was preserved. He was given breathing treatments, started on antibiotics for suspected pneumonia, and admitted for
further evaluation and management.
His respiratory status significantly improved with steroids and breathing treatments. He did not require supplemental oxygen. His strep pneumoniae and Legionella urinary antigens were negative. He continues to have mild to moderate diffuse
wheezing prior to his morning breathing treatments with improvement after his treatments. He will be continued on a long oral steroid taper and transitioned to oral antibiotics to complete a 7-day course. His troponins down trended down
significantly and he remained chest pain-free. His Xarelto was restarted by cardiology during this admission and will be continued for now after discharge. He will need to follow-up with his primary air hose coupler regarding necessity of
anticoagulation going forward. He remained hemodynamically stable. He will be discharged to home. He should continue close follow-up with his park activities coordinator, with his air hose coupler, and with his primary care physician.
Referrals:
Kristen Gomez MD [Family Provider, [facility]]
Additional Discharge Medication Instructions: Follow up with your primary air hose coupler in next 2-3 weeks!
Prescriptions:
New
prednisone 10 mg tablet
See Taper PO DIRECTED Qty: 30 0RF
Taper: Prednisone DC Starting at 40 mg daily
40 mg Daily for 3 Days and 0 Hour
30 mg Daily for 3 Days and 0 Hour
20 mg Daily for 3 Days and 0 Hour
10 mg Daily for 3 Days and 0 Hour
cefpodoxime 200 mg tablet
200 mg PO BID 6 Days Qty: 12 0RF
Rx Instructions:
Do not take this medication within 2 hours of your pantoprazole or other antacid medications
Continued
Gammagard Liquid 20 GRAM/200 ML solution
400 ml IV MONTHLY
atorvastatin 40 MG tablet
40 mg PO QPM
losartan 100 MG tablet
100 mg PO DAILY
escitalopram oxalate 10 mg Tablet
10 mg PO DAILY Qty: 0
eszopiclone [Lunesta] 3 mg Tablet
3 mg PO HS
Xarelto 20 mg Tablet
20 mg PO QPM
Trelegy Ellipta 200-62.5-25 mcg Blister With Device
1 inh INHALATION R DAILY
acetaminophen [Tylenol Extra Strength] 500 mg Tablet
1,000 mg PO Q6HPRN PRN (Reason: mild pain)
pantoprazole [Protonix] 40 mg Tablet,Delayed Release (Dr/Ec)
40 mg PO BID
albuterol sulfate 1.25 mg/3 mL solution for nebulization
1.25 mg inhalation R QIDPRN PRN (Reason: shortness of breath or wheezing)
Discharge Orders:
Discharge Patient (As Directed); Ordered 02/14/25
Ordered By: Anderson Tanner
Discharge Date and Time
Print Language: CITIZEN [place]
--- NOTE | 2025-02-14 12:55 | W.PN.CARDCBS ---
Today's Communication / Plan
-
Continue anticoagulation, ARB, statin
Stable for DC from CV standpoint
Follow-up as outpatient with primary production department supervisor
Impression / Plan
-
PCP:Dr. Gomez
Nurse Consultant: Dr. Aguiar
Impression:
Presented with worsening SOB, productive cough
Elevated troponin
Paroxysmal atrial fibrillation
s/p PFA, CTI ablation 02/11/2025
s/p watchman implant 02/11/2025
Chronic Xarelto anticoagulation
h/o Linq implant in 2021, battery since
HTN
Asthma
COPD
HLD
Carotid Bruit
mild MR by echo 01/2021
GERD
Echo 05/06/2024: EF 50-55%, mod cLVH, no significant valvular disease
Post-op EDUARDO 02/11/2025: EF 55-70%, no WMA, s/p 27 mm watchman FLX pro with no significant gap or leak in final position, no pericardial effusion.
Echo 02/13/2025: Normal LV RV function no pericardial effusion
Plan:
-Presented with worsening SOB over the past few days. Had similar symptoms back in January which was improved following course of steroids.
-Afebrile, covid testing negative. Productive cough. WBC within normal limits.
-Troponin elevation noted with initial troponin 4.87. Suspect elevation related to recent PVI and CTI ablation 02/11, continues to downtrend. No chest pain noted.
-Prior recent PET/CT stress test 06/2024 without evidence of ischemia.
-In SR by ECG and on review of telemetry. HR stable. Restart Xarelto 20 mg daily tonight.
-Urgent echo completed in ER, no WMA and no pericardial effusion noted on prelim.
-Suspect symptoms more pulm in nature.
-BP stable. Continue usual medications.
- Recommend outpatient follow-up with cardiology
� Stable for DC from CV standpoint
HPI: Shawn is an 84 year old male with PMH of paroxysmal atrial fibrillation w/ recent PFA and watchman implant, HTN, HLD, MR, asthma/COPD, and GERD. He presents for evaluation of worsening SOB over the past few days following recent PVI and
watchman implant at [facility] on 02/11. Notes shortness of breath and chest tightness mostly with exertion as well as a productive cough. He has had no fever or chills. No orthopnea, PND, chest pain, or edema. He had similar symptoms earlier in
01/2025 and was placed on steroids by his bindery operator and improved. Notes symptoms currently feel very similar to prior episode, but have worsened. Denies any palpitations, remains in SR by ECG and by review of telemetry. He has been off of
anticoagulation since procedure and reports he was instructed to resume tonight. In ER, troponin noted to be elevated at 4.87 with proBNP of 545. Urgent echo completed and cardiology called to evaluate patient. He still feels tight in his chest and
is coughing during exam. Covid testing negative.
Progress Note - Nurse Consultant
Subjective
Date of Service: February 14, 2025
Patient seen and examined. No acute events overnight. Patient resting comfortably in bed. Telemetry shows sinus rhythm. Patient notes productive cough and wheezing. Denies any chest pain, near-syncope, syncope, palpitations or weakness.
Objective
Labs:
02/14/25 06:25
02/14/25 06:25
Labs
Hgb 10.5 g/dL (13.0-18.0) L 02/14/25 06:25
Hct 32.7 % (39.0-52.0) L 02/14/25 06:25
Plt Count 219 10^3/uL (130-400) 02/14/25 06:25
Sodium 140 mmol/L (135-145) 02/14/25 06:25
Potassium 5.0 mmol/L (3.5-5.1) 02/14/25 06:25
BUN 21 mg/dl (9-20) H 02/14/25 06:25
Creatinine 0.8 mg/dL (0.7-1.3) 02/14/25 06:25
Glucose 129 mg/dl (70-99) H 02/14/25 06:25
Troponins
02/13/25 02/13/25 02/14/25
12:54 19:23 06:25
Troponin I 4.870 H* 3.690 H* 1.710 H*
Vital Signs and I&O:
Vital Signs
Temp Pulse Resp BP Pulse Ox
98.3 F 76 17 131/76 97
02/14/25 11:17 02/14/25 11:17 02/14/25 11:17 02/14/25 11:17 02/14/25 11:17
Vital Signs
Temp Pulse Resp BP Pulse Ox
98.3 F 76 17 13176 97
02/14/25 11:17 02/14/25 11:17 02/14/25 11:17 02/14/25 11:17 02/14/25 11:17
Intake & Output
02/12/25 02/13/25 02/14/25 02/15/25
06:59 06:59 06:59 06:59
Intake Total 380 / 380
Output Total 650 / 650
Balance -270 / -270
Physical Exam
Physical Exam
GENERAL: no acute distress
EYE: sclera anicteric
NECK: Supple, no JVD, no carotid bruit appreciated
ENT: normal nose, moist mucosal membranes
CARDIAC: Regular rate and rhythm, +S1/S2, no murmur, rubs, or gallops
CHEST/PULMONARY: Normal effort, diffuse rhonchi, expiratory wheezing
ABDOMEN: Soft, without focal tenderness or distention
NEUROLOGICAL: Alert and oriented x3
SKIN: Warm and dry, no rash
PSYCH: Normal and appropriate interaction.
--- NOTE | 2025-02-14 12:57 | CM ---
CM reviewed chart, patient seen with spouse, for discharge today. Patient denies needs upon discharge. Patient confirms PCP Kristen Gomez, [facility], confirms prescription coverage. Patient denies VN in the home, confirms he has a
cane. [facility] form verbally reviewed, declined need for copy, placed in chart. Spouse to transport home. CM will continue to follow for all discharge planning needs.
Plan; home no needs
== END 2025-02-14 13:05 | disposition home or self-care (01) ==
LOC: 4 WEST ACU 18:19
PROVIDERS: Emergency Medicine; ADMITTING PHYSICIAN Internal Medicine; EMERGENCY PHYSICIAN Emergency Medicine; FAMILY PHYSICIAN Family Medicine; OTHER PHYSICIAN Internal Medicine Cardiovascular Disease
DX: J44.0 Chronic obstructive pulmonary disease with (acute) lower respiratory infection (principal); J18.9 Pneumonia, unspecified organism; J44.1 Chronic obstructive pulmonary disease with (acute) exacerbation; K21.9 Gastro-esophageal reflux disease without esophagitis; I48.0 Paroxysmal atrial fibrillation; R05.8 Other specified cough; N40.0 Benign prostatic hyperplasia without lower urinary tract symptoms; K44.9 Diaphragmatic hernia without obstruction or gangrene; M21.371 Foot drop, right foot; R06.82 Tachypnea, not elsewhere classified; I11.9 Hypertensive heart disease without heart failure; E78.5 Hyperlipidemia, unspecified; I34.0 Nonrheumatic mitral (valve) insufficiency; R79.89 Other specified abnormal findings of blood chemistry; D64.9 Anemia, unspecified; K27.9 Peptic ulcer, site unspecified, unspecified as acute or chronic, without hemorrhage or perforation; J90 Pleural effusion, not elsewhere classified; G62.9 Polyneuropathy, unspecified; R09.89 Other specified symptoms and signs involving the circulatory and respiratory systems; Z66 Do not resuscitate; Z87.19 Personal history of other diseases of the digestive system; Z95.818 Presence of other cardiac implants and grafts; Z83.3 Family history of diabetes mellitus; Z79.01 Long term (current) use of anticoagulants; Z82.49 Family history of ischemic heart disease and other diseases of the circulatory system; Z87.891 Personal history of nicotine dependence; Z87.442 Personal history of urinary calculi; Z88.1 Allergy status to other antibiotic agents; Z88.5 Allergy status to narcotic agent; Z11.52 Encounter for screening for COVID-19
CPT/HCPCS: 71046; 80048; 80053; 83880; 84484; 85025; 87040; 87070; 87205; 87449; 87811; 87899; 93005; 93306; 94640; 96365; 96375; 99285; G0378; Q9950

== ENCOUNTER → 2025-04-06 10:20 | Outpatient (REF) | payer OTHER, SELFPAY | LOC: RAD 10:20 | PROVIDERS: ATTENDING PHYSICIAN Internal Medicine Critical Care Medicine; FAMILY PHYSICIAN Family Medicine | DX: J90 Pleural effusion, not elsewhere classified (principal) | CPT/HCPCS: 71046 ==

== ENCOUNTER 2025-06-16 06:21 | Day surgery (SDC) | payer OTHER, SELFPAY ==
[2025-06-01 09:10] LABS: Hematocrit 39.6 % (39.0-52.0); Hemoglobin 12.9 g/dL (13.0-18.0); Mean Corp Hgb Conc. 32.6 g/dL (33.0-37.0); Mean Corpuscular Volume 82.8 fL (80.0-94.0); Platelet Count 306 10^3/uL (130-400); Red Cell Dist. Width 14.4 % (11.5-14.5)
[2025-06-01 09:29] LABS: Glycohemoglobin (HgbA1c) 5.4 % (4.0-5.9)
[2025-06-01 09:34] LABS: ALT (SGPT) 17 U/L (0-50); AST (SGOT) 16 U/L (17-59); Albumin 4.0 g/dl (3.5-5.0); Alkaline Phosphatase 76 U/L (38-126); Blood Urea Nitrogen 19 mg/dl (9-20); Calcium 9.2 mg/dl (8.4-10.2); Carbon Dioxide 28 mmol/L (22-30); Chloride 105 mmol/L (98-107); Glucose 93 mg/dl (70-99); Potassium 4.3 mmol/L (3.5-5.1); Sodium 140 mmol/L (135-145); Total Protein 7.1 g/dl (6.3-8.2); eGFR > 60.00
[2025-06-01 13:55] VITALS: BMI 32.0
--- NOTE | 2025-06-08 09:43 | VNURNOTE ---
Chart reviewed. Noted that pt is scheduled as Same Day /PSR - will stay overnight. No home care needs per Ortho sociology adjunct instructor documentation.
[2025-06-15 16:03] VITALS: BMI 32.0
[2025-06-16] VITALS (11 sets, daily range): BP systolic 115–152; BP diastolic 57–78; PULSE 60; O2SAT 93; BMI 32.0
[2025-06-16] MEDS: NORMOSOL-R/PLASMALYTE-A 1000 IV ×2 (11:08→16:03)
--- NOTE | 2025-06-16 11:57 | W.PN.ORTHO ---
Today's Communication / Plan
-
d/c when stable
Assessment
.
Assessment:
Afib-Watchman 02/11/25
MR
HTN
HLD
Hx syncope
-tele
Hx prior post-op acute hypoxemic respiratory failure secondary to bronchospasm w/ underlying:
Interstitial fibrosis
Obstructive sleep apnea, CPAP setting 9.
COPD/Remote tobacco abuse.
Asthma
-Cpap
-inh+neb
-IV decadron for inflammation/pain and lung perfusion- minimize opioids
-monitor sats
Spinal stenosis spondylolisthesis.
Avascular necrosis of the left femoral head.
Vertigo
-fall precautions
[id number] void
GERD
Insomnia
Mesenteric arterial stenosis.
Adrenal adenoma
Hypogammaglobulinemia.
History of MRSA.
Depression and anxiety.
Plan
.
Surgery / Date: L TKA Dr Aguilar 06/16/25
DVT Prophylaxis: Aspirin
Activity:
Out of bed.
PT/OT
Vital Signs and Labs
.
Vital Signs and Labs:
Lab Results
06/01/25 08:22
06/01/25 08:22
Temp Pulse Resp BP Pulse Ox
98.4 F 60 20 140/72 97
06/16/25 10:40 06/16/25 10:40 06/16/25 10:40 06/16/25 10:40 06/16/25 10:40
--- NOTE | 2025-06-16 13:50 | OR.RPT ---
Operative Report
Operative Report
Date
06/16/25
Anesthesia Type:
Spinal
Operative Indications:
Left knee DJD
Operative Findings :
Same
Complications:
None
Implants:
Tyree left knee persona MC poly 11 mm, size 10 cruciate retaining femur, size E tibia, 35 mm patella
Procedure and Technique:
Left total knee arthroplasty
INDICATIONS FOR PROCEDURE:
Patient is an active 84-year-old female who failed extensive conservative treatment for left knee DJD. We had a long discussion regarding continuing conservative treatment versus surgical intervention. Patient elected to proceed with surgical
intervention. We discussed risks benefits and alternatives to surgery. Discussed the usual expected perioperative postoperative course. No guarantees were given. After discussion written informed consent was obtained
OPERATIVE PROCEDURE:
Patient was seen identified in the preoperative holding area. Operation was marked. All questions were addressed and answered. He is taken the operating room where spinal anesthesia was administered. Operative extremity was then prepped and
draped in normal sterile fashion. Nonsterile tourniquet was applied. Timeout was performed again identifying the correct operative extremity. Preoperative antibiotics were addressed. 1 g of TXA was given preoperatively. Standard medial
parapatellar approach to the knee was taken. Sharp dissection was carried through skin subcutaneous tissues. Flaps were raised. Medial parapatellar approach was taken. Fat pad was excised in addition to synovial tissue. Attention was turned to
the femur where 9 mm distal femoral cut was performed according technique guide with the guide in line with the epicondylar axis. Using extramedullary tibial guide, a approximately 10 mm tibial cut was then performed perpendicular to mechanical
axis. 10 mm block was then placed in complete extension appropriately knee was found to be stable varus valgus stress. Distal femoral sizing guide was then placed a size 10 distal femur was chosen. 4-in-1 guide was placed and anterior, posterior,
posterior chamfer and anterior chamfer cuts were then performed. Remnant meniscal tissue was then excised. Trial implants were then placed and the tibia was prepared according technique guide. Knee was taken through range of motion and patella
was found to track appropriately. Trial implants were removed. Tibia was then prepared according technique guide to accept a size E tibia. Knee was then copiously irrigated normal saline solution. Cement was prepared on the back table. Final
tibial femoral and patellar components were placed and cement was allowed to cure. Multiple polyethylene trial insert were placed taken through range of motion. Size 11 mm polyethylene insert was found to be quite stable in extension mid flexion
and deep flexion. Tourniquet was released hemostasis was achieved with electrocautery. Final 11 mm MC poly was then placed and again taken through range of motion found to be quite stable. Wound was copiously irrigated with normal saline solution
as well as Betadine solution. Deep fascial layer was reapproximated with 0 Vicryl and closed with #1 strata fix suture. Approximately 1 g of TXA was then injected into the joint. Subcuticular layer was then closed with 2-0 Vicryl suture. Skin
was closed with robert. Aquacel dressing was placed. Anesthesia was reversed. Patient was taken to PACU in stable condition after adductor canal block was performed. Postoperative plans to include weightbearing to patient's tolerance operative
extremity. Patient will stay overnight be evaluated by physical therapy with plan discharge tomorrow. Will recommend 81 mg aspirin twice daily for DVT prophylaxis for 30 days. Plan to see patient back in 2 weeks for clinical evaluation plan
removal of robert.
Disposition:
PACU stable condition
[2025-06-16] MEDS: DILAUDID 0.25 MG IV ×2 (14:39→14:50)
[2025-06-16] MEDS: TYLENOL 650 MG PO ×2 (16:19→19:57)
[2025-06-16] MEDS: LIPITOR 40 MG PO (16:19)
[2025-06-16] MEDS: FLOMAX 0.4 MG PO (16:19)
--- NOTE | 2025-06-16 16:57 | PTCARENOTE ---
Pt arrived 1545 from PACU. AAOX3. VSS. 2LO2. Primaseal dressing c/d/i. Neurovascular checks with in normal limits. oriented to room and call valladares. admission assessment complete. bed locked and in lowest position
[2025-06-16] MEDS: PERCOCET 5/325 2 TABLET PO (17:55)
[2025-06-16] MEDS: ASPIRIN 325 MG PO (17:55)
[2025-06-16] MEDS: SYMBICORT 160/4.5 MCG INHALER INH (19:18)
[2025-06-16] MEDS: VENTOLIN NEBULES INH (19:18)
[2025-06-16] MEDS: DILAUDID 0.5 MG IV (19:32)
[2025-06-16] MEDS: COLACE 100 MG PO (19:57)
[2025-06-16] MEDS: ANCEF 5 IV (19:57)
[2025-06-16] MEDS: SENOKOT 17.2 MG PO (19:57)
[2025-06-16] MEDS: DECADRON 4 MG IV (19:58)
[2025-06-16] MEDS: TORADOL 15 MG IV (19:58)
[2025-06-16] MEDS: PROTONIX 40 MG PO (19:58)
[2025-06-16] MEDS: BACTROBAN 2% OINTMENT 1 APPLIC NASAL (20:16)
[2025-06-16] MEDS: AMBIEN 10 MG PO (22:30)
[2025-06-16] MEDS: NEURONTIN 300 MG PO (22:30)
[2025-06-17] MEDS: TYLENOL PO ×2 (00:55→04:24)
[2025-06-17 03:17] VITALS: BP 120/59
[2025-06-17] MEDS: ANCEF 5 IV (04:24)
[2025-06-17] MEDS: TYLENOL 650 MG PO ×3 (04:27→12:30)
[2025-06-17 07:00] VITALS: BP 128/59
[2025-06-17] MEDS: SPIRIVA RESPIMAT 2.5 MCG 2 PUFF INH (07:41)
[2025-06-17] MEDS: VENTOLIN NEBULES 2.5 MG INH (07:42)
[2025-06-17] MEDS: SYMBICORT 160/4.5 MCG INHALER 2 PUFF INH (07:42)
[2025-06-17] MEDS: SENOKOT 17.2 MG PO (08:07)
[2025-06-17] MEDS: PROTONIX 40 MG PO (08:07)
[2025-06-17] MEDS: FLOMAX 0.4 MG PO (08:07)
[2025-06-17] MEDS: LEXAPRO 10 MG PO (08:08)
[2025-06-17] MEDS: ASPIRIN 325 MG PO (08:08)
[2025-06-17] MEDS: TOPROL XL 50 MG PO (08:08)
[2025-06-17] MEDS: LIPITOR 40 MG PO (08:08)
[2025-06-17] MEDS: COLACE 100 MG PO (08:09)
[2025-06-17] MEDS: BACTROBAN 2% OINTMENT 1 APPLIC NASAL (08:09)
[2025-06-17] MEDS: MOBIC 15 MG PO (08:09)
[2025-06-17] MEDS: FLUSH (NSS) 3 FLUSH IV (08:10)
[2025-06-17] MEDS: DECADRON 4 MG IV (08:10)
[2025-06-17] MEDS: TORADOL 15 MG IV (08:10)
--- NOTE | 2025-06-17 08:10 | CM ---
Orthopedic Case Management Assessment
Demographics: confirmed
Living situation: Patient lives with spouse in a one story home, patient is independent with adl's and uses a cane with ambulation, patient has a walker.
Support Person Post Operatively: Spouse
History of
VN: No
SNF: No
Outpatient
Has patient purchased required equipment: Walker
PCP: Dr Kristen Gomez
Pharmacy: [facility]
Post Operative Discharge Plan: Patient is for discharge to home with spouse and VN.
[2025-06-17] MEDS: ZOFRAN 4 MG IV (08:23)
--- NOTE | 2025-06-17 08:53 | W.PN.ORTHO ---
Today's Communication / Plan
-
d/c
Assessment
.
Dressing:
Clean, dry and intact.
Assessment:
Afib-Watchman 02/11/25
MR
HTN
HLD
Hx syncope
-stable on tele
Hx prior post-op acute hypoxemic respiratory failure secondary to bronchospasm w/ underlying:
Interstitial fibrosis
Obstructive sleep apnea, CPAP setting 9.
COPD/Remote tobacco abuse.
Asthma
-Cpap
-inh+neb
-IV decadron for inflammation/pain and lung perfusion- minimize opioids
-Sats stable on RA
Spinal stenosis spondylolisthesis.
Avascular necrosis of the left femoral head.
Vertigo
-fall precautions
[id number]
Plan
.
Surgery / Date: L TKA Dr Aguilar 06/16/25
DVT Prophylaxis: Aspirin
Activity:
Out of bed.
PT/OT
Discharge Plan: Home w/ VN
Subjective
.
.:
Patient resting comfortably.
Vital Signs and Labs
.
Vital Signs and Labs:
Lab Results
06/01/25 08:22
06/01/25 08:22
Temp Pulse Resp BP Pulse Ox
97.7 F 64 15 128/89 96
06/17/25 07:00 06/17/25 07:44 06/17/25 07:44 06/17/25 08:09 06/17/25 07:44
Non-invasive Hgb result: 12.5
Physical Exam
-
HEENT: No pallor, cyanosis, or jaundice. Throat clear.
NECK: Supple. No JVD.
RESPIRATORY: diffuse scattered mild expiratory wheeze
CVS: S1, S2 normal. RRR.� No murmur, rub or gallop.
ABDOMEN: Soft, non-tender. No distension. BS+/normal.
EXTREMITIES: strength equal, no calf pain with palpation
ONLINE ADVERTISING ANALYST: AOx3. No focal deficits. clinical manager home care grossly intact
--- NOTE | 2025-06-17 10:23 | VNURNOTE ---
Addendum entered by Nellie Santiago RN 06/17/25 15:14:
Rec'ed update that patient has outpt PT already scheduled with [facility]. Due to start tomorrow. Made non-admit w/[facility]. Ortho notified.
Original Note:
Home Health Liaison met with patient at bedside to discuss [facility] nurse/therapy, visits, schedule and homebound status. Patient is agreeable and understands that visits at home will be 2-3 x per week to assess and teach medical management. Patient
is aware that [facility] will contact them for start of care within 1-2 days after discharge from .
[facility] referral completed in [facility].
[2025-06-17 11:00] VITALS: BP 130/51
[2025-06-17] MEDS: MAALOX 30 ML PO (11:19)
[2025-06-17 11:29] VITALS: BP 116/58; BP 130/58; PULSE 62; O2SAT 97
--- NOTE | 2025-06-17 13:46 | W.DS.TRANS ---
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
-
Discharge Instructions:
Discharge Diagnosis/Procedures L TKA Dr Aguilar 06/16/25
Diet As tolerated
Activity With Walker
Driving Restrictions No driving
Bathing Restrictions OK to Shower
Other Services PT,VN,OT
Instructions:
Stand-Alone Forms: Total Hip/Knee Replacement D/C
Changes to Home Medications: Yes
Discharge Medications:
DC Medications w/original date entered in [place]
atorvastatin 40 mg tablet 40 mg PO DAILY High cholesterol 04/21/21
escitalopram oxalate 10 mg tablet 10 mg PO DAILY Depression ##0 05/14/22
eszopiclone 3 mg tablet (Lunesta) 3 mg PO HS Sleep 05/14/22
fluticasone fur. 200 mcg-umeclid 62.5 mcg-vilant 25 mcg inhalat.powder (Trelegy Ellipta) 1 inh inhalation R DAILY Lung/Breathing Issues 12/12/22
pantoprazole 40 mg tablet,delayed release (Protonix) 40 mg PO BID Gastrointestinal Issue 02/13/25
Gammagard 1 dose IV Q30D 06/09/25
amlodipine 5 mg tablet 5 mg PO DAILY 06/09/25
cholecalciferol (vitamin D3) 50 mcg (2,000 unit) capsule (Vitamin D3) 50 mcg PO DAILY 06/09/25
clopidogrel 75 mg tablet 75 mg PO DAILY 06/09/25
Held on 06/17/25. Instructions: Resume on 06/18/25.
mecobalamin (vitamin B12) 1,000 mcg chewable tablet (B12 Active) 1,000 mcg PO DAILY 06/09/25
metoprolol succinate 50 mg tablet,extended release 24 hr 50 mg PO DAILY 06/09/25
mupirocin 2 % topical ointment 1 applic topical BID 06/09/25
aspirin 81 mg capsule 81 mg PO BID Blood clot prevention/tx #0 caps 06/17/25
cefadroxil 500 mg capsule 500 mg PO BID infection prevention #14 caps 06/17/25
dexamethasone 4 mg tablet 4 mg PO BID inflammation #6 tabs 06/17/25
docusate sodium 100 mg capsule (Colace) 100 mg PO BID stool softner #1 cap 06/17/25
gabapentin 300 mg capsule 300 mg PO HS sleep/pain #10 caps 06/17/25
losartan 100 mg tablet 100 mg PO DAILY Blood pressure #0 tabs 06/17/25
magnesium hydroxide 400 mg/5 mL oral suspension (Milk of Magnesia) 30 ml PO HS PRN constipation #1 mL 06/17/25
ondansetron 4 mg disintegrating tablet 4 mg PO Q6H PRN n/v #20 tabs 06/17/25
oxycodone-acetaminophen 5 mg-325 mg tablet (Percocet) 1 tab PO Q6H PRN moderate-severe pain #30 tabs 06/17/25
sennosides 8.6 mg tablet (Senokot) 17.2 mg (2 x 8.6 mg) PO BID laxative #2 tabs 06/17/25
Home Medication Changes
mupirocin 2 % topical ointment 1 applic topical BID 06/09/25
aspirin 81 mg capsule 81 mg PO BID Blood clot prevention/tx #0 caps 06/17/25
cefadroxil 500 mg capsule 500 mg PO BID infection prevention #14 caps 06/17/25
dexamethasone 4 mg tablet 4 mg PO BID inflammation #6 tabs 06/17/25
docusate sodium 100 mg capsule (Colace) 100 mg PO BID stool softner #1 cap 06/17/25
gabapentin 300 mg capsule 300 mg PO HS sleep/pain #10 caps 06/17/25
losartan 100 mg tablet 100 mg PO DAILY Blood pressure #0 tabs 06/17/25
magnesium hydroxide 400 mg/5 mL oral suspension (Milk of Magnesia) 30 ml PO HS PRN constipation #1 mL 06/17/25
ondansetron 4 mg disintegrating tablet 4 mg PO Q6H PRN n/v #20 tabs 06/17/25
oxycodone-acetaminophen 5 mg-325 mg tablet (Percocet) 1 tab PO Q6H PRN moderate-severe pain #30 tabs 06/17/25
sennosides 8.6 mg tablet (Senokot) 17.2 mg (2 x 8.6 mg) PO BID laxative #2 tabs 06/17/25
Pending Results: No
--- NOTE | 2025-06-18 07:56 | CM ---
Late Entry
Received a call that patient will be receiving home PT from [facility].
== END 2025-06-17 15:12 | disposition home health service (06) ==
LOC: SDS 06:21
PROVIDERS: ATTENDING PHYSICIAN Orthopaedic Surgery; FAMILY PHYSICIAN Family Medicine; REFERRING PHYSICIAN Internal Medicine Cardiovascular Disease
DX: M17.12 Unilateral primary osteoarthritis, left knee (principal)
CPT/HCPCS: 27447; C1776; 73560; 80053; 83036; 85027; 87070; 94640; 94660; 97110; 97116; 97163; 97166; 97530; 97535

== ENCOUNTER 2025-07-13 12:30 | Emergency (ER) | payer OTHER, SELFPAY ==
[2025-07-13 12:33] VITALS: BP 109/63
--- NOTE | 2025-07-13 13:18 | ED.GENMED ---
History of Present Illness
General
Chief Complaint: Head Injury
Source: patient
Exam Limitations: none
Time Seen by Provider: 07/13/25 12:50
Nursing documentation reviewed up to this point in time: agreed with
History of Present Illness
History of Present Illness:
Patient is an 84-year-old male with history of atrial fibrillation on Xarelto who presents to the emergency department with persistent headache following fall 2 nights ago. Patient states that he fell out of bed while he was dreaming landing face
first on the ground. He denies any loss of consciousness at the time. He states that he had an immediate nosebleed which resolved after a few minutes. He has felt relatively well over the past few days however has had a persistent frontal headache
and sensation of lightheadedness. He denies any nausea, vomiting, visual changes, neck or back pain. He denies any dizziness, ataxia, or changes in mental status. He states that he has been ambulatory at home without difficulty.
He is anticoagulated on Xarelto for atrial fibrillation.
Past History
Past History
ED Past Medical History: Asthma, COPD, GERD and Other (Kidney stones, Rectal bleeding, Vertigo, BPH, diverticulosis, hiatal hernia, pancreatitis, right foot drop)
ED Past Surgical History: Orthopedic (R knee)
Social History
Tobacco: Former smoker (quit 35 yrs ago.)
Alcohol: Occasional
Drug: None
Personal:
Living: with roommate
Employment: Employed
Family History
Family History: Other (Noncontributory)
Review of Systems
Review of Systems
Allergies reviewed?: Yes
All Other Systems: ROS reviewed and negative except as documented in HPI and ROS
Phy Exam
Physical Exam
Physical Exam:
Vitals: Patient's vital signs are stable. Afebrile
General: Patient is well appearing in no distress
Skin: Warm and dry, no rashes or lesions
Head: Normocephalic, atraumatic
Eyes: Sclera nonicteric. Pupils equal round and reactive to light bilaterally. EOMs intact. No nystagmus.
Nose: Healing ecchymosis to nasal bridge with focal area of tenderness however no obvious deformity. No septal hematoma bilaterally.
Throat: Protecting airway
Neck: Normal ROM, no cervical spine tenderness, no meningismus
Cardiac: Regular rate
Pulm: No respiratory distress,
.
Abdomen: No abdominal tenderness.
Extremities: Bilateral upper and lower extremities atraumatic and nontender with full ROM
Neuro: AAOx3. CN II-XII grossly intact.No facial droop or asymmetry. No focal neurologic deficits.
Psychiatric: Normal affect.
Course
Orders/Labs/Results
Orders:
Orders
07/13/25 12:37
CT Head W/o Iv Contrast Urgent
Comment:
Reason For Exam: falll +thinners
07/13/25 13:18
Facial Bones wo Contrast CT [CT Facial Bones W/o Iv Contras] Urgent
Comment:
Reason For Exam: fall, pain on nasal bridge
Acetaminophen [Tylenol] 650 mg PO NOW STA
07/13/25 13:20
Acetaminophen [Tylenol] 650 mg .ROUTE .STK-MED ONE
07/13/25 14:22
Crisis Consult Urgent
Reason for Consult: Moderate SI screening
Comment: No active SI plan or intent per screening
Vital Signs
Initial and Last Documented VS:
Initial Vital Signs
Temp Pulse Resp BP Pulse Ox
97.9 F 95 20 109/63 95
07/13/25 12:33 07/13/25 12:33 07/13/25 12:33 07/13/25 12:33 07/13/25 12:33
Last Documented Vital Signs
Temp Pulse Resp BP Pulse Ox
97.9 F 78 18 132/67 95
07/13/25 12:33 07/13/25 14:24 07/13/25 14:24 07/13/25 14:24 07/13/25 13:20
MDM/Problems Addressed
Differential Diagnosis Includes:
Not limited to: contusion, concussion, brain bleed, nasal facture, etc
MDM/Problems Addressed:
84-year-old male with persistent headache following fall with head strike 2 nights ago when he rolled out of bed. He is anticoagulated on Xarelto for atrial fibrillation. No change in mental status, dizziness, ataxia, or visual changes. He has
been ambulating independently without difficulty. Vital stable. On exam, patient very well-appearing and in no distress. Healing ecchymosis to nasal bridge without evidence of septal hematoma or obvious deformity. No C-spine tenderness. He is
alert and oriented without neurologic deficits. No evidence of extremity injury on exam.
Given known head strike, persistent headache on Xarelto�will obtain CT imaging head and facial bones.
Update: CT imaging head and facial bones without evidence of acute traumatic injuries. Patient remains well-appearing, neurologically intact. Will discharge home with supportive care instructions and strict return precautions. Patient comfortable
with plan.
Chronic conditions affecting care:
Atrial fibrillation on xarelto
Acute Exacerbation and/or Progression of Chronic Illness:
N/A
*Radiology
Radiology exam reviewed: radiology read reviewed
*Pulse Oximetry
SaO2: 95
Oxygen Mode of Delivery: Room air
Patient hypoxic: no
*EKG
Interpreted by ED Provider?: NA
*Industrial Health Engineer Interpretation
Rate: Industrial Health Engineer- N/A
*Critical Care Note
Total Time (30-74mins, 75-104mins- exclusive of procedures): Not Applicable
ED Attending Note
-
Portions of this chart may have been created with voice recognition software.� Occasional wrong word or��sound alike� substitutions may have occurred due to the inherent limitations of voice recognition software.
Discharge Plan
Departure
Patient Disposition: Home (Routine Discharge)
Date of Disposition: 07/13/25
Time of Disposition: 14:51
Patient with high blood pressure during this ER visit?: Yes
Condition: Good
Discharge Problem:
Concussion
Instructions: Concussion, Adult (DC), BLOOD PRESSURE
Prescriptions:
No Action
atorvastatin 40 MG tablet
40 mg PO DAILY
escitalopram oxalate 10 mg Tablet
10 mg PO DAILY Qty: 0
eszopiclone [Lunesta] 3 mg Tablet
3 mg PO HS
Trelegy Ellipta 200-62.5-25 mcg Blister With Device
1 inh INHALATION R DAILY
pantoprazole [Protonix] 40 mg Tablet,Delayed Release (Dr/Ec)
40 mg PO BID
metoprolol succinate 50 mg Tablet Extended Release 24 Hr
50 mg PO DAILY
clopidogrel 75 mg Tablet
75 mg PO DAILY
amlodipine 5 mg Tablet
5 mg PO DAILY
cholecalciferol (vitamin D3) [Vitamin D3] 50 mcg (2,000 unit) Capsule
50 mcg PO DAILY
mecobalamin (vitamin B12) [B12 Active] 1,000 mcg Tablet,Chewable
1,000 mcg PO DAILY
Gammagard
1 dose IV Q30D
mupirocin 2 % Ointment
1 applic TOPICAL BID
Patient Comments:
Patient administered this medication @ 08:00 today on 06/16/25. Patient started using this medication on 06/14/25 in the evening.
cefadroxil 500 mg capsule
500 mg PO BID Qty: 14 0RF
Rx Instructions:
*Take w/ food
*Take w/ probiotic
*POST-OP USE
docusate sodium [Colace] 100 mg capsule
100 mg PO BID Qty: 1 0RF
losartan 100 MG tablet
100 mg PO DAILY Qty: 0 0RF
Rx Instructions:
hold systolic blood pressure <130 if taking Percocet/Oxy
aspirin 81 mg Capsule
81 mg PO BID Qty: 0 0RF
magnesium hydroxide [Milk of Magnesia] 400 mg/5 mL suspension
30 ml PO HS PRN (Reason: constipation) Qty: 1 0RF
Rx Instructions:
CONTINUE colace W/senokot-if no bowel movement 1 day POST-OP -add milk of mag
dexamethasone 4 mg tablet
4 mg PO BID Qty: 6 0RF
Rx Instructions:
take with food
post-op use only
gabapentin 300 mg capsule
300 mg PO HS Qty: 10 0RF
Rx Instructions:
*POST-OP USE ONLY
sennosides [Senokot] 8.6 mg tablet
17.2 mg PO BID Qty: 2 0RF
ondansetron 4 mg tablet,disintegrating
4 mg PO Q6H PRN (Reason: n/v) Qty: 20 0RF
Rx Instructions:
take 1/2h b/f pain med if recurrent nausea
allow to dissolve in mouth w/o water
oxycodone-acetaminophen [Percocet] 5-325 mg tablet
1 tab PO Q6H MDD 30mg PRN (Reason: moderate-severe pain) Qty: 30 0RF
Rx Instructions:
ongoing
5mg if moderate pain level, 10mg severe
Referrals:
Your PCP [Other] - Follow up in 1 week
UNKNOWN - PT DOES,NOT KNOW [Family Provider]
Activity Restrictions/Additional Instructions:
RETURN TO THE EMERGENCY DEPARTMENT WITH ANY SEVERE HEADACHE OR NECK PAIN, INTRACTABLE NAUSEA/VOMITING, VISUAL CHANGES, PERSISTENT DIZZINESS OR DIFFICULTY AMBULATING, CHANGES IN MENTAL STATUS, WORSENING IN CURRENT SYMPTOMS, OR ANY OTHER CONCERNS
- Your CT imaging of your head and facial bones showed no evidence of acute traumatic injury today in the emergency department. No evidence of facial bone fracture. You may have sustained a concussion.
- Please continue to take Tylenol as needed for headache. It is important to stay well-hydrated and get plenty of rest.
- Follow-up with your primary care provider for further evaluation/management and to ensure that your symptoms are improving
Monitor your symptoms closely and return to the emergency department with any acute worsening/new symptoms or any other concerns
PATIENT IS MEDICALLY CLEARED FOR PT TOLERATED
Interventions
Interventions:
*General Assessment Last Done: 07/13/25 12:33
*Neglect/Abuse Screening Last Done: 07/13/25 14:27
*ED COVID-19 Vaccine History Last Done: 07/13/25 14:20
*ED Influenza Vaccine History Last Done: 07/13/25 14:23
[facility] Fall Risk Assessment Tool Last Done: 07/13/25 14:00
*Risk Screen - Suicide (C-SSRS) Last Done: 07/13/25 14:20
*Nursing Disposition Last Done: 07/13/25 15:05
ED- Neurological Assessment Last Done: 07/13/25 13:23
ED-Skin Assessment Last Done: 07/13/25 13:23
Discharge Date and Time
Discharge Date/Time: 07/13/25 15:05
Print Language: [place]
[2025-07-13] MEDS: TYLENOL 650 MG PO (13:21)
[2025-07-13 14:24] VITALS: BP 132/67
== END 2025-07-13 15:05 | disposition home or self-care (01) ==
LOC: EMR 12:30
PROVIDERS: EMERGENCY PHYSICIAN Emergency Medicine
DX: S06.0X0A Concussion without loss of consciousness, initial encounter (principal); S00.33XA Contusion of nose, initial encounter; G44.309 Post-traumatic headache, unspecified, not intractable; W06.XXXA Fall from bed, initial encounter; R03.0 Elevated blood-pressure reading, without diagnosis of hypertension; I48.91 Unspecified atrial fibrillation; J44.89 Other specified chronic obstructive pulmonary disease; K21.9 Gastro-esophageal reflux disease without esophagitis; K57.30 Diverticulosis of large intestine without perforation or abscess without bleeding; N40.0 Benign prostatic hyperplasia without lower urinary tract symptoms; M21.371 Foot drop, right foot; G62.9 Polyneuropathy, unspecified; M19.90 Unspecified osteoarthritis, unspecified site; F32.A Depression, unspecified; G47.30 Sleep apnea, unspecified; Z79.01 Long term (current) use of anticoagulants; Z87.442 Personal history of urinary calculi; Z87.891 Personal history of nicotine dependence; Z88.1 Allergy status to other antibiotic agents; Z88.5 Allergy status to narcotic agent
CPT/HCPCS: 99284; 70450; 70486